=== PATIENT | female | born 1975 | race African-American/Black ===

== ENCOUNTER 2017-01-06 23:31 | Emergency (ER) | payer OTHER ==
[2017-01-07] MEDS ORDERED: Sulfamethox/Trimethoprim DS 800/160* TAB PO ONE (03:46)
[2017-01-07] MEDS ORDERED: Hydrocortisone 1% CREAM* 30 GM TUBE TOPICAL ONE (03:46)
--- NOTE | 2017-01-07 05:40 | ED ---
Tiburcio Lima Matthew, scribed for Pierce López on 01/07/17 at 0451 . Skin Complaint - HPI Summary HPI Summary: A 41 y/o female presents to the ED with a rash since a week ago. The pain is rated 9/10 in severity and described as burning. She states that the rash developed after waxing her face a week ago. Associated symptoms include headache. The patient denies chest pain and SOB. The patient had an ID last year. She is on blood thinners. - History of Current Complaint Chief Complaint: EDRashSkinAbscess Time Seen by Provider: 01/07/17 03:29 Stated Complaint: RASH ON FACE Hx Obtained From: Patient Hx Last Menstrual Period: 03/06/16 Onset/Duration: Started Days Ago, Atraumatic, Still Present Timing: Constant Onset Severity: Moderate Current Severity: Moderate Pain Intensity: 9 Pain Scale Used: 0-10 Numeric Skin Location: Face Character: Swelling, Painful Associated Signs & Symptoms: Negative - Additional Pertinent History Primary Care Physician: SCAR - Allergy/Home Medications Allergies/Adverse Reactions: Allergies Allergy/AdvReac Type Severity Reaction Status Date / Time No Known Allergies Allergy Verified 08/20/16 14:54 PMH/Surg Hx/FS Hx/Imm Hx Endocrine/Hematology History: Reports: Hx Anticoagulant Therapy, Hx Diabetes - type II Cardiovascular History: Reports: Hx Coronary Artery Disease, Hx Hypertension, Other Cardiovascular Problems/Disorders - IDDM II/OBESITY, HX OF PE Denies: Hx Congestive Heart Failure Respiratory History: Reports: Hx Asthma, Hx Pulmonary Embolism Denies: Hx Chronic Obstructive Pulmonary Disease (COPD) GI History: Reports: Hx Gastroesophageal Reflux Disease, Hx Hiatal Hernia History: Denies: Hx Dialysis, Hx Renal Disease Musculoskeletal History: Reports: Hx Back Problems - pain clinic, Hx Fibromyalgia Sensory History: Reports: Hx Contacts or Glasses Opthamlomology History: Reports: Hx Contacts or Glasses Psychiatric History: Reports: Hx Anxiety - Cancer History Hx Chemotherapy: No Hx Radiation Therapy: No - Surgical History Surgery Procedure, Year, and Place: knee arthroscopy, tonsillectomy Infectious Disease History: No Infectious Disease History: Denies: Traveled Outside the [place] in Last 30 Days - Family History Known Family History: Positive: Cardiac Disease, Other - NONCONTIBUTORY - Social History Alcohol Use: None Substance Use Type: Reports: Prescribed Hx Tobacco Use: No Smoking Status (MU): Never Smoked Tobacco Have You Smoked in the Last Year: No Review of Systems Constitutional: Negative Positive: Photophobia ENT: Negative Cardiovascular: Negative Negative: Chest Pain Respiratory: Negative Negative: Shortness Of Breath Gastrointestinal: Negative Genitourinary: Negative Musculoskeletal: Negative Skin: Other - Swelling around the chin and face Positive: Rash - under the chin Positive: Headache Psychological: Normal All Other Systems Reviewed And Are Negative: Yes Physical Exam Triage Information Reviewed: Yes Vital Signs On Initial Exam: Initial Vitals Temp Pulse Resp BP Pulse Ox 98.3 F 100 20 146/79 98 01/07/17 00:29 01/07/17 00:29 01/07/17 00:29 01/07/17 00:29 01/07/17 00:29 Vital Signs Reviewed: Yes Appearance: Positive: Well-Appearing, No Pain Distress Skin: Positive: Other - mild swelling over the chin and face with white discoloration Eyes: Positive: EOMI, RANJANA ENT: Positive: Normal ENT inspection Neck: Positive: Supple, Nontender Respiratory/Lung Sounds: Positive: Clear to Auscultation, Breath Sounds Present Cardiovascular: Positive: RRR, Pulses are Symmetrical in both Upper and Lower Extremities Abdomen Description: Positive: Nontender, Soft Bowel Sounds: Positive: Present Musculoskeletal: Positive: Normal, Strength/ROM Intact Neurological: Positive: Normal, Sensory/Motor Intact, Alert, Oriented to Person Place, Time Psychiatric: Positive: Affect/Mood Appropriate Diagnostics - Vital Signs Vital Signs Temp Pulse Resp BP Pulse Ox 01/07/17 03:16 95 152/93 99 01/07/17 00:29 98.3 F 100 20 146/79 98 - Laboratory Lab Statement: Any lab studies that have been ordered have been reviewed, and results considered in the medical decision making process. Course/Dx - Course Assessment/Plan: A 41 y/o female presents to the ED with a rash since a week ago. The pain is rated 9/10 in severity and described as burning. She states that the rash developed after waxing her face a week ago. Associated symptoms include headache. The patient denies chest pain and SOB. The patient will be discharged home on Bactrim and follow-up with her PCP. - Diagnoses Provider Diagnoses: Folliculitis Discharge - Discharge Plan Condition: Stable Disposition: HOME Prescriptions: Hydrocortisone 0.5% OINT* 1 applic TOPICAL BID #2 tube Sulfamethox/Trimethoprim DS* [Bactrim DS 800/160 TAB*] 1 tab PO BID #20 tab Patient Education Materials: Folliculitis (ED) Referrals: Tl Carlin MD [Primary Care Provider] - 3 Days Additional Instructions: Please follow-up with your primary care physician in 3 days. The documentation as recorded by the Tiburcio fitzgerald Matthew accurately reflects the service I personally performed and the decisions made by , Pierce López.
[2017-01-07 05:47] VITALS: BP 132/72
== END 2017-01-07 04:25 | disposition home or self-care (01) ==
LOC: ED 23:31
DX: L73.9 Follicular disorder, unspecified (principal); H53.149 Visual discomfort, unspecified; R21 Rash and other nonspecific skin eruption; R51 Headache
CPT/HCPCS: 99282; A9270-GY

== ENCOUNTER 2017-05-17 17:13 | Inpatient (IN) | payer OTHER ==
[2017-05-17] MEDS ORDERED: Morphine INJ* 4 MG/ML 1 ML SYRINGE IV ONE (18:46)
--- NOTE | 2017-05-17 19:27 | RAD ---
HISTORY: Chest pain COMPARISONS: August 20, 2016 VIEWS:1: Single frontal portable view of the chest at 7:07 PM FINDINGS: LINES AND TUBES: None. CARDIOMEDIASTINAL SILHOUETTE: The cardiomediastinal silhouette is normal for portable technique. PLEURA: The costophrenic angles are sharp. No pleural abnormalities are noted. LUNG PARENCHYMA: The lungs are clear. ABDOMEN: There is a moderate-sized hiatal hernia BONES AND SOFT TISSUES: No bone or soft tissue abnormalities are noted. IMPRESSION: HIATAL HERNIA. NO ACTIVE CARDIOPULMONARY DISEASE.
[2017-05-17 19:42] LABS: Hematocrit 39 % (35-47); Hemoglobin 13.2 g/dl (12.0-16.0); Mean Corpuscular HGB Conc 34 g/dl (31-36); Mean Corpuscular Hemoglobin 30 pg (27-31); Mean Corpuscular Volume 89 fL (80-97); Mean Platelet Volume 8 um3 (7.4-10.4); Red Blood Count 4.44 10^6/ul (4.0-5.4); Red Cell Distribution Width 16 % (10.5-15); White Blood Count 7.6 10^3/ul (3.5-10.8)
[2017-05-17 19:58] LABS: Albumin 3.8 g/dL (3.2-5.2); BUN/Creatinine Ratio 20.8 (8-20); Calcium 9.2 mg/dL (8.6-10.3); EGFR African American 113.2 (>60); Globulin 3.1 g/dL (2-4); Potassium 3.3 mmol/L (3.5-5.0); Total Bilirubin 0.3 mg/dL (0.2-1.0); Total Protein 6.9 g/dL (6.4-8.9)
--- NOTE | 2017-05-17 20:49 | ED ---
Beverly Lima Auryana, scribed for Arianne Hicks MD on 05/17/17 at 1803 . HPI Chest Pain - HPI Summary HPI Summary: 42 year old female presents with chest pain worse since today. She reports that it is intermittent chest pain that's an 8/10. Patient reports that over the last few weeks the pain has progressively gotten worse and recently had cardiac medications increased. Patient was seen at her PCP office and referred to ED for further evaluation. She reports a near syncopal episode while on her way to be seen at the ED- she also had neck pain, jaw pain, diaphoresis, increased fatigue, and SOB at 15:40. She reports similar symptoms with previous WA. 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 SHx is not significant for tobacco, alcohol,m or any drug use. PCP is Dr. Carlin. - History of Current Complaint Chief Complaint: EDChestPainROMI Time Seen by Provider: 05/17/17 17:54 Hx Obtained From: Patient Onset/Duration: Started Weeks Ago - 1, Still Present, Worse Since - today Time of Onset: 17:00 Timing: Intermittent Initial Severity: Mild Current Severity: Moderate Pain Intensity: 5 - reports 8/10 on arrival Pain Scale Used: 0-10 Numeric Chest Pain Location: Diffuse Chest Pain Radiates: No Associated Signs and Symptoms: Positive: Chest Pain, Shortness of Breath, Syncope, Diaphoresis, Other: - fatigue, neck pain, jaw pain Related History: Similar Episode/Dx as: - see HPI - Additional Pertinent History Primary Care Physician: [id number] - Allergy/Home Medications Allergies/Adverse Reactions: Allergies Allergy/AdvReac Type Severity Reaction Status Date / Time No Known Allergies Allergy Verified 05/17/17 17:21 Home Medications: Home Medications Diltiazem HCl Coated Beads [Cartia Xt] 240 mg PO DAILY 05/17/17 [History Confirmed 05/17/17] Fluticasone NASAL SPRAY 50MCG* [Flonase NASAL SPRAY 50MCG*] 2 spray BOTH NARES DAILY PRN 05/17/17 [History Confirmed 05/17/17] Hydrochlorothiazide TAB* [Hydrodiuril TAB*] 12.5 mg PO DAILY 05/17/17 [History Confirmed 05/17/17] Insulin Glargine [Basaglar Kwikpen] 75 unit SUBCUT QPM 05/17/17 [History Confirmed 05/17/17] Isosorbide Mononitrate ER TAB* [Imdur ER TAB*] 60 mg PO DAILY 05/17/17 [History Confirmed 05/17/17] Warfarin TAB(*) [Coumadin TAB(*)] 10 mg PO .TWICE WEEKLY 05/17/17 [History Confirmed 05/17/17] glipiZIDE TAB* [Glucotrol TAB*] 5 mg PO DAILY 05/17/17 [History Confirmed ] PMH/Surg Hx/FS Hx/Imm Hx Endocrine/Hematology History: Reports: Hx Anticoagulant Therapy, Hx Diabetes - type II Cardiovascular History: Reports: Hx Coronary Artery Disease, Hx Hypertension, Other Cardiovascular Problems/Disorders - IDDM II/OBESITY, HX OF PE Denies: Hx Congestive Heart Failure Respiratory History: Reports: Hx Asthma, Hx Pulmonary Embolism Denies: Hx Chronic Obstructive Pulmonary Disease (COPD) GI History: Reports: Hx Gastroesophageal Reflux Disease, Hx Hiatal Hernia History: Denies: Hx Dialysis, Hx Renal Disease Musculoskeletal History: Reports: Hx Back Problems - pain clinic, Hx Fibromyalgia Sensory History: Reports: Hx Contacts or Glasses Opthamlomology History: Reports: Hx Contacts or Glasses Psychiatric History: Reports: Hx Anxiety - Cancer History Hx Chemotherapy: No Hx Radiation Therapy: No - Surgical History Surgery Procedure, Year, and Place: knee arthroscopy, tonsillectomy Infectious Disease History: No Infectious Disease History: Denies: Traveled Outside the [place] in Last 30 Days - Family History Known Family History: Positive: Cardiac Disease - Social History Alcohol Use: None Hx Substance Use: Yes Substance Use Type: Reports: Prescribed Hx Tobacco Use: No Smoking Status (MU): Never Smoked Tobacco Have You Smoked in the Last Year: No Review of Systems Positive: Skin Diaphoresis, Other - increased fatigue Eyes: Negative ENT: Negative Positive: Chest Pain Positive: Shortness Of Breath Gastrointestinal: Negative Genitourinary: Negative Positive: Other - NECK AND JAW PAIN Skin: Negative Neurological: Negative Psychological: Normal All Other Systems Reviewed And Are Negative: Yes Physical Exam - Summary Physical Exam Summary: General: Well appearing, no pain distress Skin: Warm, Skin Color Reflects Adequate Perfusion, Dry Eyes: EOMI, RANJANA ENT: Pharynx normal, TMs normal Neck: Supple, nontender Respiratory: CTA, breath sounds present, no rhonchi, no wheezes, no rales Cardiovascular: RRR, no murmur, no rub, no gallop Abdomen: Soft, nontender, Non-distended, no guarding, no rebound Bowel: Present Musculoskeletal: SHARMAINE, No edema Neuro: Sensory/motor intact, A&Ox3, CN intact 2-12 Psych: Affect/mood appropriate Triage Information Reviewed: Yes Vital Signs On Initial Exam: Initial Vitals Temp Pulse Resp BP Pulse Ox 97.9 F 79 20 148/85 97 05/17/17 17:16 05/17/17 17:16 05/17/17 17:16 05/17/17 17:16 05/17/17 17:16 Vital Signs Reviewed: Yes - Erickson Coma Scale Coma Scale Total: 15 Diagnostics - Vital Signs Vital Signs Temp Pulse Resp BP Pulse Ox 05/17/17 17:18 97.9 F 78 20 148/85 96 05/17/17 17:16 97.9 F 79 20 148/85 97 - Laboratory Lab Results: Lab Results 05/17/17 05/17/17 05/17/17 Range/Units 19:20 19:20 19:20 WBC 7.6 (3.5-10.8) 10^3/ul RBC 4.44 (4.0-5.4) 10^6/ul Hgb 13.2 (12.0-16.0) g/dl Hct 39 (35-47) % MCV 89 (80-97) fL MCH 30 (27-31) pg MCHC 34 (31-36) g/dl RDW 16 H (10.5-15) % Plt Count 316 (150-450) 10^3/ul MPV 8 (7.4-10.4) um3 Neut % (Auto) 49.7 (38-83) % Lymph % (Auto) 40.9 (25-47) % [place] % (Auto) 7.2 (1-9) % Eos % (Auto) 1.6 (0-6) % Baso % (Auto) 0.6 (0-2) % Absolute Neuts (auto) 3.8 (1.5-7.7) 10^3/ul Absolute Lymphs (auto) 3.1 (1.0-4.8) 10^3/ul Absolute Monos (auto) 0.5 (0-0.8) 10^3/ul Absolute Eos (auto) 0.1 (0-0.6) 10^3/ul Absolute Basos (auto) 0 (0-0.2) 10^3/ul Absolute Nucleated RBC 0 10^3/ul Nucleated RBC % 0.1 Sodium 138 (133-145) mmol/L Potassium 3.3 L (3.5-5.0) mmol/L Chloride 106 (101-111) mmol/L Carbon Dioxide 24 (22-32) mmol/L Anion Gap 8 (2-11) mmol/L BUN 15 (6-24) mg/dL Creatinine 0.72 (0.51-0.95) mg/dL Est GFR ( Amer) 113.2 (>60) Est GFR (Non-Af Amer) 88.0 (>60) BUN/Creatinine Ratio 20.8 H (8-20) Glucose 145 H (70-100) mg/dL Lactic Acid 1.3 (0.5-2.0) mmol/L Calcium 9.2 (8.6-10.3) mg/dL Total Bilirubin 0.30 (0.2-1.0) mg/dL AST 10 L (13-39) U/L ALT 11 (7-52) U/L Alkaline Phosphatase 83 (34-104) U/L Troponin I 0.00 (<0.04) ng/mL Total Protein 6.9 (6.4-8.9) g/dL Albumin 3.8 (3.2-5.2) g/dL Globulin 3.1 (2-4) g/dL Albumin/Globulin Ratio 1.2 (1-3) Result Diagrams: 05/17/17 19:20 05/17/17 19:20 Lab Statement: Any lab studies that have been ordered have been reviewed, and results considered in the medical decision making process. - Radiology CXR Xray Interpretation: Positive (See Comments) - IMPRESSION: HIATAL HERNIA. NO ACTIVE CARDIOPULMONARY DISEASE. Radiology Interpretation Completed By: Radiologist - EKG 17:25 EKG Interpretation: NSR @76 bpm, FLAT NON-SPECIFIC T WAVES CHANGES EKG Comparison: No Significant Change - FROM 08/22/16 Chest Pain Course/Dx - Diagnoses Provider Diagnoses: Chest pain Discharge - Discharge Plan Condition: Stable Disposition: ADMITTED TO [facility] The documentation as recorded by the Beverly fitzgerald Auryana accurately reflects the service I personally performed and the decisions made by me, Arianne Hicks MD.
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
[2017-05-17] MEDS ORDERED: Acetaminophen TAB* 325 MG PO PRN (21:31)
[2017-05-17] MEDS ORDERED: Morphine INJ* 2 MG/ML 1 ML SYRINGE IV PRN (21:34)
[2017-05-17] MEDS ORDERED: CMCS: Melatonin (NF) 3 MG TAB PO PRN (21:34)
[2017-05-17] MEDS ORDERED: Ondansetron INJ* 2 MG/ML VIAL IV PRN (21:34)
[2017-05-17] MEDS ORDERED: Nitroglycerin 2% OINT* 1 GM PAK ONE (22:26)
[2017-05-17] MEDS: Nitroglycerin 2% OINT* 1 GM PAK TOPICAL SCH (22:30)
[2017-05-17] MEDS: traMADol TAB* 50 MG PO PRN (22:31)
[2017-05-17] MEDS ORDERED: Cetirizine* 10 MG TAB PO PRN (23:01)
[2017-05-17] MEDS ORDERED: Albuterol 2.5 MG/3 ML NEB.SOL* (0.083%) INH PRN (23:01)
[2017-05-17] MEDS ORDERED: Potassium Chlor TAB* 20 MEQ TAB.ER PO ONE (23:30)
[2017-05-17] MEDS: NS 0.9% 1000 ML* 1,000 ML IV SCH (23:33)
[2017-05-17] MEDS ORDERED: Heparin VIAL(*) 5000 UNITS/ML VIAL (FIVE THOUSAND) SUBCUT PRN (23:37)
[2017-05-18] MEDS: Heparin DRIP 25,000 UNITS(*) 25,000 UNITS/500 ML BAG IVPB SCH ×3 (00:47→19:42)
[2017-05-18 00:49] LABS: BUN/Creatinine Ratio 19.7 (8-20); Calcium 8.7 mg/dL (8.6-10.3); EGFR African American 106.3 (>60); EGFR Non-African American 82.7 (>60); Potassium 3.3 mmol/L (3.5-5.0)
[2017-05-18] MEDS: Heparin VIAL(*) 5000 UNITS/ML VIAL (FIVE THOUSAND) IV PRN ×2 (00:51→19:39)
[2017-05-18 00:54] LABS: Troponin I 0.05 ng/mL (<0.04)
[2017-05-18] MEDS: Nitro Patch/OINT Remove PATCH OFF SCH ×5 (04:30→22:44)
[2017-05-18] MEDS: Nitroglycerin 2% OINT* 1 GM PAK TOPICAL SCH ×4 (04:31→22:44)
[2017-05-18] MEDS: traMADol TAB* 50 MG PO PRN (04:52)
[2017-05-18] MEDS ORDERED: Heparin VIAL(*) 5000 UNITS/ML VIAL (FIVE THOUSAND) SUBCUT SCH (06:00)
[2017-05-18] MEDS ORDERED: Omeprazole CAP* 20 MG PO SCH (06:00)
[2017-05-18] MEDS: Mometasone/Formoter 200/5 MDI INH SCH ×2 (07:37→19:44)
[2017-05-18] MEDS: Insulin LISPRO* 1 UNITS UNIT SUBCUT SCH ×7 (08:07→22:31)
[2017-05-18] MEDS ORDERED: Regadenoson* 0.4 MG/5 ML SYRINGE ONE (12:53)
[2017-05-18] MEDS: Citalopram TAB* 40 MG PO SCH (14:36)
[2017-05-18] MEDS: Aspirin Low Dose CHEW TAB* 81 MG PO SCH (14:36)
[2017-05-18] MEDS: Docusate CAP* 100 MG PO SCH ×2 (14:37→22:42)
[2017-05-18] MEDS: Omeprazole CAP* 20 MG PO SCH (14:37)
[2017-05-18] MEDS: Diltiazem CD CAP* 240 MG PO SCH (14:40)
[2017-05-18] MEDS: Hydrochlorothiazide TAB* 25 MG PO SCH (14:41)
[2017-05-18] MEDS: glipiZIDE TAB* 5 MG PO SCH (14:42)
[2017-05-18] MEDS: oxyCODONE/Acetamin 5/325 MG* TAB PO PRN ×2 (14:42→23:06)
[2017-05-18] MEDS: Metoprolol Tartrate TAB* 25 MG PO SCH ×2 (14:48→22:43)
--- NOTE | 2017-05-18 16:54 | PN ---
Subjective Date of Service: 05/18/17 Interval History: HOSPITALIST PROGRESS NOTE Patient seen and examined at bedside. She feels a little better this AM, but very anxious about her condition. Denies dyspnea or palpitations. Family History: Unchanged from Admission Social History: Unchanged from Admission Past Medical History: Unchanged from Admission Objective Active Medications: Acetaminophen (Tylenol Tab*) 650 mg PO Q6H PRN PRN Reason: FEVER/PAIN Albuterol (Ventolin 2.5 Mg/3 Ml Neb.Gwen*) 2.5 mg INH Q2H PRN PRN Reason: SOB/WHEEZING Aspirin (Aspirin Low Dose Tab*) 81 mg PO DAILY [facility] Last Admin: 05/18/17 14:36 Dose: 81 mg Atorvastatin Calcium (Lipitor*) 40 mg PO BEDTIME [facility] Cetirizine HCl (Zyrtec*) 10 mg PO DAILY PRN PRN Reason: Allergy Symptoms Citalopram Hydrobromide (Celexa Tab*) 40 mg PO DAILY [facility] Last Admin: 05/18/17 14:36 Dose: 40 mg Diltiazem HCl (Cardizem Cd Cap*) 240 mg PO DAILY [facility] Last Admin: 05/18/17 14:40 Dose: 240 mg Docusate Sodium (Colace Cap*) 200 mg PO BID [facility] Last Admin: 05/18/17 14:37 Dose: 200 mg Glipizide (Glucotrol Tab*) 5 mg PO DAILY [facility] Last Admin: 05/18/17 14:42 Dose: 5 mg Heparin Sodium (Porcine) (Heparin Vial(*)) 0 units IV .PER PROTOCOL PRN PRN Reason: HEPARIN DRIP BOLUSES Last Admin: 05/18/17 00:51 Dose: 6,450 units Hydrochlorothiazide (Hydrodiuril Tab*) 12.5 mg PO DAILY [facility] Last Admin: 05/18/17 14:41 Dose: 12.5 mg Sodium Chloride (Ns 0.9% 1000 Ml*) 1,000 mls @ 75 mls/hr IV PER RATE [facility] Last Admin: 05/17/17 23:33 Dose: 75 mls/hr Heparin Sodium/Dextrose (Heparin Drip 25,000 Units(*)) 25,000 units in 500 mls @ 0 mls/hr IVPB .(INITIAL RATE) [facility]; Per Protocol PRN Reason: Protocol Last Admin: 05/18/17 00:47 Dose: 28 mls/hr Insulin Glargine (Lantus(*)) 75 units SUBCUT 2100 [facility] Insulin Human Lispro (Humalog*) 0 units SUBCUT AC [facility] PRN Reason: Protocol Last Admin: 05/18/17 15:32 Dose: 3 units Insulin Human Lispro (Humalog*) 0 units SUBCUT ACHS [facility] PRN Reason: Protocol Last Admin: 05/18/17 14:27 Dose: 3 units Melatonin (Melatonin (Nf)) 3 mg PO BEDTIME PRN; Protocol PRN Reason: Sleep Metoprolol Tartrate (Lopressor Tab*) 25 mg PO ED ONCE ONE Stop: 05/18/17 22:57 Metoprolol Tartrate (Lopressor Tab*) 37.5 mg PO BID [facility] Last Admin: 05/18/17 14:48 Dose: 37.5 mg Mometasone Furoate/Formoterol Fumar (Dulera 200/5 Mdi*) 1 puff INH BID [facility] Last Admin: 05/18/17 07:37 Dose: 1 puff Morphine Sulfate (Morphine Inj (Syringe)*) 2 mg IV Q4H PRN PRN Reason: PAIN - MILD Nitroglycerin (Nitroglycerin 2% Oint*) 1 inch TOPICAL Q6H [facility] Last Admin: 05/18/17 10:10 Dose: Not Given Omeprazole (Prilosec Cap*) 40 mg PO QAM [facility] Last Admin: 05/18/17 14:37 Dose: 40 mg Ondansetron HCl (Zofran Inj*) 4 mg IV Q6H PRN PRN Reason: NAUSEA Last Admin: 05/17/17 22:31 Dose: 4 mg Oxycodone/Acetaminophen (Percocet 5/325 Tab*) 1 tab PO Q8HR PRN PRN Reason: PAIN Last Admin: 05/18/17 14:42 Dose: 1 tab Pharmacy Profile Note (Nitro Patch/Oint Remove*) 1 note PATCH OFF Q6H [facility] Last Admin: 05/18/17 10:10 Dose: Not Given Tramadol HCl (Ultram*) 50 mg PO Q6H PRN PRN Reason: PAIN Last Admin: 05/18/17 04:52 Dose: 50 mg Vital Signs 05/18/17 05/18/17 05/18/17 07:20 07:30 07:32 Temperature 97.4 F Pulse Rate 80 Respiratory 15 10 20 Rate Blood Pressure 117/69 (mmHg) O2 Sat by Pulse 97 Oximetry 05/18/17 05/18/17 05/18/17 14:10 14:20 14:30 Temperature 97.6 F Pulse Rate 75 Respiratory 16 18 11 Rate Blood Pressure 141/61 (mmHg) O2 Sat by Pulse 98 Oximetry Oxygen Devices in Use Now: None Appearance: Obese lady lying in bed in NAD. Eyes: No Scleral Icterus Ears/Nose/Mouth/Throat: Mucous Membranes Moist Neck: Trachea Midline Respiratory: Symmetrical Chest Expansion and Respiratory Effort, Clear to Auscultation Cardiovascular: RRR - Normal S1 and S2 Abdominal: NL Sounds; No Tenderness; No Distention Neurological: Alert and Oriented x 3, NL Muscle Strength and Tone Lines/Tubes/Other Access: Clean, Dry and Intact Peripheral IV Nutrition: Taking PO's Result Diagrams: 05/17/17 19:20 05/18/17 00:25 Assess/Plan/Problems-Billing Assessment: Mrs. 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 - Patient Problems (1) Chest pain Comment: - Troponin minimally elevated at 0.05 despite persistent chest pain. - Causing patient significant anxiety as she previously had CP for weeks prior to developing inferior STEMI. - Plan for Myoview lexiscan. - INR is subtherapeutic and her last coronary event was secondary to a thrombus - continue heparin for now, but if stress test negative, will change to Lovenox/ Warfarin. - Continue Aspirin, Metoprolol, Atorvastatin, Nitrates. (2) History of pulmonary embolism Comment: - INR subtherapeutic. - Continue heparin drip. If stress test negative and no indication for cath, will bridge with Lovenox and resume Warfarin. (3) Diabetes mellitus Comment: - Last A1c 6.9. - Continue Lantus, glipizide, and lispro SS. (4) Asthma Comment: - Stable. - Continue albuterol prn and dulera. (5) Hypertension Comment: - Controlled. - Continue metoprolol, diltiazem, and HCTZ (6) DVT prophylaxis Comment: - Heparin drip. (7) Full code status Status and Disposition: Inpatient.
--- NOTE | 2017-05-18 17:05 | CONSULT ---
Subjective Date of Service: 05/18/17 Interval History: Admission Date: 05/17/17 Date of consult: 05/18/2017 Service: Hospitalist PCP : Caitlin Carlin MD CC : chest pain Reason for consult: Chest pain HPI : Myranda Menjivar is a 42 year old woman well known to me that I follow as an outpatient. She has a history of PE, anemia, IWMI 09/2015 s/p aspiration thrombectomy of RPL/PDA branches felt to be due to hypercoagulable state (? vs. vasospasm) following an angiogram with non-obstructive CAD a month prior to this , LVEF normal, obesity, DM, HTN, dyslipidemia, asthma, also hx of right radial/ arm thrombus following radial angiogram, CT scan showing wedge infarcts of left renal parenchyma. [place] to have hypercoagulable state. Also has hiatal hernia, PTSD, fibromyalgia and a history of very frequent and prolonged non-cardiac chest pain as well. She lives near [place] but drives to [place] for medical care. She was at [facility] with atypical CP, ruled out for ACS, normal stress echo and discharged. Was there again 04/28/2017 with atypical chest pain, ruled out and discharged. She has been under a lot of family stress and cried for at least 40 minutes in the office today. We increased her imdur some and this helped a little bit with discomfort but continued. She saw Dr. Carlin yesterday (had also been to counseling for the first time) . She had to kidney puller the side of the rode to sleep she tells me because she was so exhausted. She felt lightheaded but no outright syncope. She continues to have varying degrees of chest discomfort throughout hospitalization. EKG's have shown NSR with old IWMI and no ischemic changes. There was one spuriously elevated troponin of 0.05 otherwise have been normal. D-dimer < 200. INR was 1.24 PMedHx ME with thrombectomy 09/2015 cardiac cath complicated by radial artery occlusion 08/2015 pulmonary embolism 04/2015 insulin requiring DM2 iron deficiency anemia asthma hiatal hernia chronic pain syndrome fibromyalgia depression PTSD anxiety disorder mood disorder Allergies No Known Allergies Allergy (Verified 05/17/17 17:21) SocHx : no tobacco, alcohol, or recreational drug use; lives alone, has fiance; full code status FamHx : Sister passed of a pulmonary embolism at age 21. Otherwise, positive for CAD, HTN, HLD, DM2 Current meds prior to visit: Glipizide 5 mg take 1 tablet after breakdaily Metformin HCL 500 mg 1 by mouth twice a day Basaglar Kwikpen 100 Unit/ML 75 units at bedtime Warfarin Sodium 4 mg 1 by mouth every other night or as directed Diflucan 150 mg 1 tab 1 dose as needed Gabapentin 100 mg 2 cap three times a day Colace 100 mg 2 cap at bedtime Milk Of Magnesia 1200 mg/15ml 15 milliliters at bedtime blanka Omeprazole 20 mg 1 by mouth twice daily Warfarin Sodium 5 mg now taking 10mg t2tab alternating 3tab Nitrostat 0.4 mg one sl q5min up to 3 doses as needed Atorvastatin Calcium 40 mg 1 by mouth every day Voltaren 1 % apply 2 grams of gel twice daily to the affected areas as needed Montelukast Sodium 10 mg once daily Alcohol Wipes 70 % use when checking blood sugar 2-3 times daily and as needed Lancets use 2-3 times daily and as needed Freestyle Test test strips 2-3 times daily and as needed Cetirizine HCL 10 mg 1 by mouth every day Citalopram Hydrobromide 40 mg 1 by mouth every day Aspirin Ec 81 mg 1 by mouth every day Sumatriptan Succinate 100 mg use at onset of head ache,may repeat after 2h as needed Freestyle Insulinx Blood Glucose Monitoring System W/Device as directed. dx code 250.02 Freestyle Insulinx Blood Glucose Test Strips check blood sugar 2-3 times daily Pen [place] 03/13" 30G X 8 mm four times a day every day for lantus and humalog Zolpidem Tartrate 10 mg 1/2 to 1 tab by mouth every night at bedtime as needed Lisinopril-Hydrochlorothiazide 10-12.5 mg once daily in in the morning Ondansetron 4 mg 1 two times a day as needed for nausea Ventolin HFA 108 (90 Base) mcg/Act 2 puffs by mouth four times a day as needed Humalog Kwikpen 100 Unit/ML check before meals &prn [id number] 2u,201-250 4 u, 251-300 5 u, 301-350 6 u 351-400 8 units; >400 call md, mdd 100 units Percocet 5-325 mg 1tab every 8 hours as needed pain Dulera 200-5 mcg/Act 2 puff twice a day Isosorbide Mononitrate ER 30 mg 1 by mouth every day Diltiazem CD 120 mg 1 cap daily medication list reviewed on 05/04/2017 Allergies: No Known Drug Allergy 05/11/15 Dust Mites 10/10/16 Mold 10/10/16 Pollen 10/10/16 allergy list reviewed on 05/04/2017 PMH: Medical Problems: Hypertension Diabetes Type II Asthma Fibromyalgia Pulmonary Embolism GERD Surgical Hx: Tonsillectomy Hospitalizations: April 2015 [facility], May 2015 for respiratory / Pe Medications Active Medications: Acetaminophen (Tylenol Tab*) 650 mg PO Q6H PRN PRN Reason: FEVER/PAIN Albuterol (Ventolin 2.5 Mg/3 Ml Neb.Gwen*) 2.5 mg INH Q2H PRN PRN Reason: SOB/WHEEZING Aspirin (Aspirin Low Dose Tab*) 81 mg PO DAILY [facility] Last Admin: 05/18/17 14:36 Dose: 81 mg Atorvastatin Calcium (Lipitor*) 40 mg PO BEDTIME [facility] Cetirizine HCl (Zyrtec*) 10 mg PO DAILY PRN PRN Reason: Allergy Symptoms Citalopram Hydrobromide (Celexa Tab*) 40 mg PO DAILY [facility] Last Admin: 05/18/17 14:36 Dose: 40 mg Diltiazem HCl (Cardizem Cd Cap*) 240 mg PO DAILY [facility] Last Admin: 05/18/17 14:40 Dose: 240 mg Docusate Sodium (Colace Cap*) 200 mg PO BID [facility] Last Admin: 05/18/17 14:37 Dose: 200 mg Glipizide (Glucotrol Tab*) 5 mg PO DAILY [facility] Last Admin: 05/18/17 14:42 Dose: 5 mg Heparin Sodium (Porcine) (Heparin Vial(*)) 0 units IV .PER PROTOCOL PRN PRN Reason: HEPARIN DRIP BOLUSES Last Admin: 05/18/17 00:51 Dose: 6,450 units Hydrochlorothiazide (Hydrodiuril Tab*) 12.5 mg PO DAILY [facility] Last Admin: 05/18/17 14:41 Dose: 12.5 mg Sodium Chloride (Ns 0.9% 1000 Ml*) 1,000 mls @ 75 mls/hr IV PER RATE [facility] Last Admin: 05/17/17 23:33 Dose: 75 mls/hr Heparin Sodium/Dextrose (Heparin Drip 25,000 Units(*)) 25,000 units in 500 mls @ 0 mls/hr IVPB .(INITIAL RATE) [facility]; Per Protocol PRN Reason: Protocol Last Admin: 05/18/17 00:47 Dose: 28 mls/hr Insulin Glargine (Lantus(*)) 75 units SUBCUT 2100 [facility] Insulin Human Lispro (Humalog*) 0 units SUBCUT AC [facility] PRN Reason: Protocol Last Admin: 05/18/17 15:32 Dose: 3 units Insulin Human Lispro (Humalog*) 0 units SUBCUT ACHS [facility] PRN Reason: Protocol Last Admin: 05/18/17 14:27 Dose: 3 units Melatonin (Melatonin (Nf)) 3 mg PO BEDTIME PRN; Protocol PRN Reason: Sleep Metoprolol Tartrate (Lopressor Tab*) 25 mg PO ED ONCE ONE Stop: 05/18/17 22:57 Metoprolol Tartrate (Lopressor Tab*) 37.5 mg PO BID [facility] Last Admin: 05/18/17 14:48 Dose: 37.5 mg Mometasone Furoate/Formoterol Fumar (Dulera 200/5 Mdi*) 1 puff INH BID [facility] Last Admin: 05/18/17 07:37 Dose: 1 puff Morphine Sulfate (Morphine Inj (Syringe)*) 2 mg IV Q4H PRN PRN Reason: PAIN - MILD Nitroglycerin (Nitroglycerin 2% Oint*) 1 inch TOPICAL Q6H [facility] Last Admin: 05/18/17 10:10 Dose: Not Given Omeprazole (Prilosec Cap*) 40 mg PO QAM [facility] Last Admin: 05/18/17 14:37 Dose: 40 mg Ondansetron HCl (Zofran Inj*) 4 mg IV Q6H PRN PRN Reason: NAUSEA Last Admin: 05/17/17 22:31 Dose: 4 mg Oxycodone/Acetaminophen (Percocet 5/325 Tab*) 1 tab PO Q8HR PRN PRN Reason: PAIN Last Admin: 05/18/17 14:42 Dose: 1 tab Pharmacy Profile Note (Nitro Patch/Oint Remove*) 1 note PATCH OFF Q6H [facility] Last Admin: 05/18/17 10:10 Dose: Not Given Tramadol HCl (Ultram*) 50 mg PO Q6H PRN PRN Reason: PAIN Last Admin: 05/18/17 04:52 Dose: 50 mg Home Medications: Ondansetron TAB* [Zofran 4 MG Tab*] 4 mg PO BID PRN 05/13/15 [History Confirmed 05/17/17] Docusate CAP* [Colace Cap*] 100 mg PO BID 09/13/15 [History Confirmed 05/17/17] Insulin Lispro [Humalog Kwikpen] 0 - 8 unit SUBCUT AC PRN 09/13/15 [History Confirmed 05/17/17] LevoCETirizine TAB (NF) [Xyzal TAB (NF)] 5 mg PO DAILY PRN 09/13/15 [History Confirmed 05/17/17] Mometasone/Formoter 200/5 MDI* [Dulera 200/5 MDI*] 1 puff INH BID 09/13/15 [ History Confirmed 05/17/17] oxyCODONE/Acetamin 5/325 MG* [Percocet 5/325 TAB*] 1 tab PO Q8HR PRN 09/13/15 [ History Confirmed 05/17/17] Omeprazole CAP* [Prilosec CAP* 20 MG] 40 mg PO QAM 09/16/15 [History Confirmed 05/17/17] Zolpidem TAB* [Ambien*] 5 - 10 mg PO BEDTIME PRN 09/16/15 [History Confirmed ] Albuterol HFA INHALER* [Ventolin HFA Inhaler*] 2 puff INH QID PRN 09/21/15 [ History Confirmed 05/17/17] Atorvastatin* [Lipitor 40 MG*] 40 mg PO BEDTIME 09/21/15 [History Confirmed ] Aspirin Low Dose CHEW TAB* [Aspirin Low Dose TAB*] 81 mg PO DAILY #30 tab.chew 10/20/15 [Rx Confirmed 05/17/17] Citalopram TAB* [Celexa TAB*] 40 mg PO DAILY #30 tab 10/20/15 [Rx Confirmed ] Metoprolol Tartrate TAB* [Lopressor TAB*] 37.5 mg PO BID #60 tab 10/20/15 [Rx Confirmed 05/17/17] Warfarin TAB(*) [Coumadin TAB(*)] 15 mg PO EVERY OTHER DAY 03/20/16 [History Confirmed 05/17/17] Nitroglycerin TAB 0.4 MG* 0.4 mg SL Q5M PRN #30 tab 08/22/16 [Rx Confirmed 05/17] Hydrocortisone 0.5% OINT* 1 applic TOPICAL BID #2 tube 01/07/17 [Rx Confirmed ] Diltiazem HCl Coated Beads [Cartia Xt] 240 mg PO DAILY 05/17/17 [History Confirmed 05/17/17] Fluticasone NASAL SPRAY 50MCG* [Flonase NASAL SPRAY 50MCG*] 2 spray BOTH NARES DAILY PRN 05/17/17 [History Confirmed 05/17/17] Hydrochlorothiazide TAB* [Hydrodiuril TAB*] 12.5 mg PO DAILY 05/17/17 [History Confirmed 05/17/17] Insulin Glargine [Basaglar Kwikpen] 75 unit SUBCUT QPM 05/17/17 [History Confirmed 05/17/17] Isosorbide Mononitrate ER TAB* [Imdur ER TAB*] 60 mg PO DAILY 05/17/17 [History Confirmed 05/17/17] Warfarin TAB(*) [Coumadin TAB(*)] 10 mg PO .TWICE WEEKLY 05/17/17 [History Confirmed 05/17/17] glipiZIDE TAB* [Glucotrol TAB*] 5 mg PO DAILY 05/17/17 [History Confirmed ] Review of Systems - Measurements Intake and Output: Intake and Output Last 24 Hours 05/16/17 05/17/17 05/18/17 05/19/17 06:59 06:59 06:59 06:59 Intake Total 546 0 Output Total 0 Balance 546 0 Weight 285 lb 8 oz Intake: IV Fluids 206 NS (0.9%) 206 Heparin 165 Oral 175 0 Output: Urine 0 Other: # Bowel Movements 0 - Review of Systems Constitutional Symptoms: Negative: Weakness, Fatigue Dermatology: Negative: Rash, Skin Lesions HEENT: Negative: Change in Hearing, Vertigo, Tinnitus Eyes: Negative: Change in Vision, Double Vision, Eye Pain Thyroid: Positive: Sweatiness, Palpitations Negative: Cold Intolerance, Heat Intolerance, Primary Hypothyroidism, Primary Hyperthyroidism Pulmonary: Positive: Shortness of Breath, Asthma, Exercise Intolerance Negative: Cough, Sputum, Hemoptysis Cardiology: Positive: Chest Pain, Shortness of Breath, Palpitations Negative: Normal, Swelling of Ankles, Peripheral Vascular Dis, Edema, Syncope , Claudication, Paroxysmal Nocturnal Dyspnea, Orthopnea Gastroenterology: Positive: Heartburn Negative: Abdominal Pain, Nausea, Vomiting, Anorexia, Indigestion, Difficulty Swallowing, Constipation, Diarrhea Genital - Urinary: Negative: Dysuria, Hematuria Musculoskeletal: Negative: Joint Pain, Joint Stiffness, Arthritis, Osteoporosis, Low Back Pain Endocrinology: Positive: Obesity, Diabetes Negative: Calluses, Polydipsia, Polyuria Hematologic/Lymphatic: Positive: Use of Anticoagulant, Use of Antiplatelet Drugs Negative: Easy Brusing, Hx Leukemia, Hx Lymphoma Neurology: Negative: Headaches, Migraines, Diplopia, Dizziness, Change in Balancing, Change in Coordination, Change in Memory, Change in Speech, Change in Sphincter Function, Change in Walking, Numbness\\Paresthesiae, Hx of Stroke\\TIA, Hx Seizures Psychiatry: Positive: Anxiety, Unusual Fatigue Negative: Suicidal Ideation Allergic/Immunologic: Negative: Hx Environmental Allergies, Hx Seasonal Allergies, Hx HIV, Immunocompromise, Swollen Glands Lymph Nodes, Other Review of Systems Statement: All other review of systems negative, unless stated above. Objective Vital Signs: Temp Pulse Resp BP Pulse Ox 97.6 F 59 20 129/68 98 05/18/17 16:07 05/18/17 16:07 05/18/17 16:07 05/18/17 16:07 05/18/17 16:07 Oxygen Devices in Use Now: None Appearance: tearful at times but pleasant, not toxic appearing Ears/Nose/Mouth/Throat: Clear Oropharnyx, Mucous Membranes Moist Neck: NL Appearance and Movements; NL JVP, Trachea Midline Respiratory: Symmetrical Chest Expansion and Respiratory Effort, Clear to Auscultation Cardiovascular: NL Sounds; No Murmurs; No JVD, RRR, No Edema Abdominal: - - soft, obese Extremities: No Edema, No Clubbing, Cyanosis Skin: No Rash or Ulcers Neurological: Alert and Oriented x 3 Laboratory Results: 05/17/17 19:20 05/18/17 00:25 INR (Anticoag Therapy) 1.24 (0.89-1.11) H 05/17/17 19:20 APTT 76.4 seconds (26.0-36.3) H 05/18/17 09:36 Total Bilirubin 0.30 mg/dL (0.2-1.0) 05/17/17 19:20 AST 10 U/L (13-39) L 05/17/17 19:20 ALT 11 U/L (7-52) 05/17/17 19:20 Alkaline Phosphatase 83 U/L (34-104) 05/17/17 19:20 Total Protein 6.9 g/dL (6.4-8.9) 05/17/17 19:20 Albumin 3.8 g/dL (3.2-5.2) 05/17/17 19:20 Globulin 3.1 g/dL (2-4) 05/17/17 19:20 Albumin/Globulin Ratio 1.2 (1-3) 05/17/17 19:20 05/17/17 05/18/17 05/18/17 19:20 00:25 05:46 Troponin I 0.00 0.05 H* 0.00 Diagnostic Imaging: Cardiac Testing: Stress Test - (11/27/2016) Baseline LVEF reported normal with no WMA, no evidence of ischemia with dobutamine stress echo Echocardiogram - (10/15/2015) LVEF 55-60%, mild LVH, no significant valvular abnormalities noted. Holter Monitor - (07/02/2015) chest pain, fatigue, dyspnea or fast heart rate all associated with either normal sinus rhythm or sinus tachycardia. Stress Test - (06/23/2015) Normal vasodilator NM stress test EKG - (06/14/2015) Sinus rhythm, no ischemic changes. Echocardiogram - (04/2015) mild-mod LVH, LVEF 60-65%, mild dilated LA EKG - (05/03/2016) NSR, old inferior wall ME Assessment/Plan There is no evidence of a cardiac etiology of patients chest pain. A stress test had been ordered and is in process but her prior ME was vasospastic or thrombotic so it will be of little utility. Inferior wall changes consistent with her prior ME are expected. I would continue aggressive anti-anginals but also consider non-cardiac causes of her pain. I am unsure what to make of the episode while driving here. There was no outright syncope. It would appear to be unlikely arrhythmic or bradycardia related but I would continue telemetry monitoring while inpatient. INR needs to be therapeutic. She has a follow up with me scheduled 05/28/2017
[2017-05-18] MEDS ORDERED: Insulin GLARGINE(*) 1 UNITS UNIT SUBCUT SCH (21:00)
[2017-05-18] MEDS ORDERED: Atorvastatin* 40 MG TAB PO SCH (21:00)
[2017-05-18] MEDS ORDERED: Metoprolol Tartrate TAB* 25 MG PO ONE (22:56)
[2017-05-19] MEDS: NS 0.9% 1000 ML* 1,000 ML IV SCH (03:18)
[2017-05-19] MEDS: Nitroglycerin 2% OINT* 1 GM PAK TOPICAL SCH ×2 (04:06→11:43)
[2017-05-19] MEDS: Nitro Patch/OINT Remove PATCH OFF SCH ×2 (04:10→11:43)
[2017-05-19] MEDS: Heparin DRIP 25,000 UNITS(*) 25,000 UNITS/500 ML BAG IVPB SCH (05:16)
[2017-05-19] MEDS: Mometasone/Formoter 200/5 MDI INH SCH (08:23)
--- NOTE | 2017-05-19 09:25 | RAD ---
Edited for charges. INDICATION: Chest pain, STEMI September 2016. COMPARISON: There are no prior studies available for comparison. Technique: A stress myocardial perfusion study was performed on May 18, 2017. Under the direction of Dr. Ball, the patient was given intervenous injection of Lexiscan. Subsequently the patient was given intravenous injection of 26.3 mCi of technetium 99m tetrofosmin and the heart was imaged in multiple projections. A resting study was performed on May 19, 2017. The patient was given an intravenous injection of 25.3 mCi of technetium 99m tetrofosmin and the heart was imaged in multiple projections. The exam is limited due to the patient's body habitus. Images were reconstructed in the axial, sagittal and coronal planes as well as in a 3-D format. FINDINGS: There appears to be normal wall motion and myocardial thickening. The left ventricular ejection fraction was calculated to be 70%. Review of the images demonstrates a small area of decreased activity in the anteroseptal wall which appears similar on both the post pharmacologic stress and resting images suggestive of an infarct. No other focal abnormalities are seen. There is no gross evidence for ischemia. IMPRESSION: 1. LIMITED STUDY. 2. SMALL PERSISTENT AREA OF DECREASED ACTIVITY IN THE ANTEROSEPTAL WALL SUGGESTIVE OF A SMALL INFARCT. ASSESSMENT: Low risk. Based on imaging criteria from ACC/AHA 2002 Guideline Update for the Management of Patients With Chronic Stable Angina Table 23. Noninvasive Risk Stratification. MTDD
--- NOTE | 2017-05-19 09:27 | RAD ---
INDICATION: Left lower extremity swelling. COMPARISON: Comparison is made with a prior study from August 20, 2016. TECHNIQUE: Multiple real-time, color flow and Doppler tracings of the left lower extremity were obtained. FINDINGS: The common femoral, femoral, profunda femoral and popliteal veins all demonstrate normal compressibility, augmentation with compression and phasic response with respiration. The posterior tibial and peroneal veins demonstrate normal compressibility and augmentation with compression. IMPRESSION: NO EVIDENCE FOR DEEP VENOUS THROMBOSIS.
[2017-05-19] MEDS: Omeprazole CAP* 20 MG PO SCH (09:54)
[2017-05-19] MEDS: glipiZIDE TAB* 5 MG PO SCH (09:55)
[2017-05-19] MEDS: Hydrochlorothiazide TAB* 25 MG PO SCH (09:55)
[2017-05-19] MEDS: Diltiazem CD CAP* 240 MG PO SCH (09:56)
[2017-05-19] MEDS: Citalopram TAB* 40 MG PO SCH (09:57)
[2017-05-19] MEDS: Aspirin Low Dose CHEW TAB* 81 MG PO SCH (09:58)
[2017-05-19] MEDS: Docusate CAP* 100 MG PO SCH (09:58)
[2017-05-19] MEDS: Metoprolol Tartrate TAB* 25 MG PO SCH (09:59)
[2017-05-19] MEDS: oxyCODONE/Acetamin 5/325 MG* TAB PO PRN (10:00)
[2017-05-19] MEDS: Insulin LISPRO* 1 UNITS UNIT SUBCUT SCH ×4 (10:02→13:40)
[2017-05-19] MEDS ORDERED: Iodixanol* (CONTRAST) 320 MG/ML 100 ML SDV IV SCH (12:32)
--- NOTE | 2017-05-19 13:31 | RAD ---
INDICATION: Chest pain. COMPARISON: Comparison is made with a prior CT angiogram of the chest from June 14, 2015. Correlation is also made with a prior portable chest x-ray study from May 17, 2017. TECHNIQUE: A CT angiogram of the chest was performed with intravenous following intravenous injection of 96 ml of Visipaque 320 nonionic contrast. Contiguous axial sections were obtained from the lung apices through the lung bases. Images were reconstructed in the coronal and sagittal planes. The exam is limited due to the patient's body habitus. FINDINGS: There is relatively homogeneous opacification of the pulmonary arteries. No intraluminal filling defect or pulmonary embolism is seen. The heart is within normal limits in size. No pericardial effusion is present. The thoracic aorta is normal in caliber and demonstrates homogeneous contrast opacification. There is a small amount of fluid adjacent to the aortic arch most likely within the pericardial recess. No significant enlarged mediastinal or hilar lymph nodes are seen. There is a moderate sized lateral hernia present. There is mild dependent bilateral lower lobe subsegmental atelectasis. The lungs are otherwise clear. No pleural effusion or pneumothorax is seen. Images of the upper abdomen demonstrate fatty infiltration of the liver. There is a small hypodense area in the posterior segment of the right hepatic lobe which correlates with a hypervascular lesion noted on the prior CT of the abdomen from July 29, 2015 and appears grossly unchanged in size. No acute findings are seen. No significant focal osseous abnormality is seen. IMPRESSION: 1. SLIGHTLY LIMITED EXAM, NO EVIDENCE FOR PULMONARY EMBOLISM. 2. MODERATE SIZE HIATAL HERNIA. 3. HEPATIC STEATOSIS.
[2017-05-19] MEDS: traMADol TAB* 50 MG PO PRN (13:42)
[2017-05-19] MEDS ORDERED: Enoxaparin(*) 150 MG/ML 1 ML SYRINGE SUBCUT SCH (14:00)
[2017-05-19] MEDS ORDERED: Enoxaparin(*) 100 MG/ML SYR SUBCUT SCH (14:00)
[2017-05-19] MEDS ORDERED: Enoxaparin(*) 30 MG/0.3 ML SYR SUBCUT SCH (14:00)
[2017-05-19] MEDS ORDERED: Warfarin TAB(*) 5 MG PO ONE (15:00)
[2017-05-19 15:42] VITALS: BP 121/76
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
== END 2017-05-19 16:19 | disposition home or self-care (01) | DRG 198 ==
LOC: ED 17:13 → MEDTELE 19:46 → OBSVTOIN 05-18 17:15
PROVIDERS: ADMIT Hospitalist; ATTEND Internal Medicine
DX: R07.9 Chest pain, unspecified (principal); I25.2 Old myocardial infarction; I74.2 Embolism and thrombosis of arteries of the upper extremities; D68.59 Other primary thrombophilia; Z68.42 Body mass index [BMI] 45.0-49.9, adult; E66.01 Morbid (severe) obesity due to excess calories; I10 Essential (primary) hypertension; E11.9 Type 2 diabetes mellitus without complications; I25.10 Atherosclerotic heart disease of native coronary artery without angina pectoris; J45.909 Unspecified asthma, uncomplicated; G89.4 Chronic pain syndrome; K44.9 Diaphragmatic hernia without obstruction or gangrene; M79.7 Fibromyalgia; F32.9 Major depressive disorder, single episode, unspecified; F43.10 Post-traumatic stress disorder, unspecified; F41.9 Anxiety disorder, unspecified; F39 Unspecified mood [affective] disorder; M54.9 Dorsalgia, unspecified; K21.9 Gastro-esophageal reflux disease without esophagitis; R40.2412 Glasgow coma scale score 13-15, at arrival to emergency department; M25.562 Pain in left knee; D50.9 Iron deficiency anemia, unspecified; K76.0 Fatty (change of) liver, not elsewhere classified; Z86.711 Personal history of pulmonary embolism; Z82.49 Family history of ischemic heart disease and other diseases of the circulatory system; Z83.3 Family history of diabetes mellitus; Z83.2 Family history of diseases of the blood and blood-forming organs and certain disorders involving the immune mechanism; Z83.49 Family history of other endocrine, nutritional and metabolic diseases; Z91.048 Other nonmedicinal substance allergy status; Z79.4 Long term (current) use of insulin; Z79.82 Long term (current) use of aspirin; Z79.01 Long term (current) use of anticoagulants
CPT/HCPCS: 36415; 71010; 71275; 78452; 80048; 80053; 83036; 83605; 84484; 85025; 85379; 85610; 85730; 93005; 93017; 94640; 94760; A9270-GY; A9502; G0378; J1644; J1650; J2270; J2405; J2785; Q9967

== ENCOUNTER 2018-06-08 07:06 | Emergency (ER) | payer OTHER ==
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
[2018-06-08 09:30] LABS: ABS Basophils 0.1 10^3/ul (0-0.2); ABS Eosinophils 0.1 10^3/ul (0-0.6); ABS Lymphocytes 3.2 10^3/ul (1.0-4.8); ABS Monocytes 0.7 10^3/ul (0-0.8); ABS Neutrophils 4.4 10^3/ul (1.5-7.7); ABS Nucleated RBC 0 10^3/ul; Eosinophil % 1.4 % (0-6); Hematocrit 29 % (35-47); Hemoglobin 9.3 g/dl (12.0-16.0); Lymphocyte % 37.8 % (25-47); Mean Corpuscular HGB Conc 32 g/dl (31-36); Mean Corpuscular Hemoglobin 24 pg (27-31); Mean Corpuscular Volume 76 fL (80-97); Mean Platelet Volume 6.9 um3 (7.4-10.4); Nucleated Red Blood Cells % 0; Platelet Count 452 10^3/ul (150-450); Red Blood Count 3.81 10^6/ul (4.00-5.40); Red Cell Distribution Width 17 % (10.5-15); White Blood Count 8.5 10^3/ul (3.5-10.8)
[2018-06-08 09:40] LABS: INR 2.5 (0.77-1.02)
[2018-06-08 10:01] LABS: EGFR Non-African American 86.2 (>60)
[2018-06-08 10:08] LABS: Urine Appearance Cloudy; Urine Blood 1+ (Negative); Urine Color Yellow; Urine Ketones Negative (Negative); Urine Protein Negative (Negative); Urine Red Blood Cell 1+(3-5/hpf) (Absent); Urine Specific Gravity 1.019 (1.010-1.030); Urine Urobilinogen Negative (Negative); Urine White Blood Cell 3+(>20/hpf) (Absent)
[2018-06-08] MEDS ORDERED: Ciprofloxacin TAB* 500 MG PO ONE (10:28)
[2018-06-08] MEDS ORDERED: Phenazopyridine TAB* 100 MG PO ONE (10:28)
[2018-06-08 11:37] VITALS: BP 115/59
--- NOTE | 2018-06-11 07:05 | PN ---
Progress Note - Progress Note Date of Service: 06/08/18 Note: Pt. seen in ER 06/08 and dx with a UTI. She was placed on Cipro. Urine culture today is growing >100,000 e. coli susceptible to cipro. No change in treatment needed at this time.
== END 2018-06-08 11:36 | disposition home or self-care (01) ==
LOC: ED 07:06
DX: N39.0 Urinary tract infection, site not specified (principal); D64.9 Anemia, unspecified; E11.9 Type 2 diabetes mellitus without complications; I25.2 Old myocardial infarction; Z79.4 Long term (current) use of insulin; Z79.01 Long term (current) use of anticoagulants
CPT/HCPCS: 36415; 80053; 81003; 81015; 83605; 83690; 83735; 84702; 85025; 85610; 85730; 86140; 87077; 87086; 87186; 99283; A9270-GY

== ENCOUNTER 2019-05-23 04:41 | Emergency (ER) | payer OTHER ==
[2019-05-23 06:08] LABS: Hematocrit 38 % (35-47); Hemoglobin 12.8 g/dL (12.0-16.0); Mean Corpuscular HGB Conc 34 g/dL (31-36); Mean Corpuscular Hemoglobin 30 pg (27-31); Mean Corpuscular Volume 88 fL (80-97); Mean Platelet Volume 7.7 fL (7.4-10.4); Platelet Count 315 10^3/uL (150-450); Red Blood Count 4.33 10^6 /uL (3.70-4.87); Red Cell Distribution Width 16 % (10-15); White Blood Count 7.4 10^3/uL (3.5-10.8)
[2019-05-23 06:28] LABS: Albumin 4.1 g/dL (3.2-5.2); Albumin/Globulin Ratio 1.5 (1-3); BUN/Creatinine Ratio 21.4 (8-20); C Reactive Protein 6.26 mg/L (<8.01); Calcium 9.1 mg/dL (8.6-10.3); EGFR Non-African American 90.1 (>60); Globulin 2.7 g/dL (2-4); Potassium 3.7 mmol/L (3.5-5.0); Total Bilirubin 0.4 mg/dL (0.2-1.0); Total Protein 6.8 g/dL (6.4-8.9)
[2019-05-23] MEDS ORDERED: predniSONE TAB* 50 MG PO ONE (08:07)
--- NOTE | 2019-05-23 08:25 | ED ---
HPI Cardiac - HPI Summary HPI Summary: This patient is a 44-year-old female who presents to the ED with diffuse body aches and pain, worse to the left side of the chest and left arm. Patient receives iron infusions every 2 weeks and following she typically has arthralgias and myalgias present. She was concerned as well she continues to have arthralgias and myalgias following this iron infusion, she is having left- sided chest pain as well. History of PE and VT per patient. Currently on blood thinners. Denies any SOB. Denies abdominal pain, nausea, vomiting. Denies diaphoresis. She states her bilateral hands have been tingling since the infusion, but denies any pain. Patient is anxious on arrival into the ED. - History of Current Complaint Chief Complaint: EDGeneral Stated Complaint: L SIDE PAIN PER PT Time Seen by Provider: 05/23/19 05:37 Hx Obtained From: Patient Hx Last Menstrual Period: 03/06/16 Onset/Duration: Started Hours Ago Timing: Constant Initial Severity: Moderate Current Severity: Moderate Pain Intensity: 10 Pain Scale Used: 0-10 Numeric Chest Pain Radiates: No Aggravating Factor(s): Nothing Alleviating Factor(s): Nothing Associated Signs and Symptoms: Positive: Negative - Risk Factors Pulmonary Embolism Risk Factors: Previous PE Cardiac Risk Factors: Negative AMI/ACS Risk Factors: Myocardial Infarction Pseudomonas Risk Factors: Negative Tuberculosis Risk Factors: Negative - Additional Pertinent History Primary Care Physician: [id number] - Allergy/Home Medications Allergies/Adverse Reactions: Allergies Allergy/AdvReac Type Severity Reaction Status Date / Time No Known Allergies Allergy Verified 05/23/19 04:46 PMH/Surg Hx/FS Hx/Imm Hx Endocrine/Hematology History: Reports: Hx Anticoagulant Therapy, Hx Diabetes - II - on insulin Cardiovascular History: Reports: Hx Angina, Hx Coronary Artery Disease, Hx Hypercholesterolemia, Hx Hypertension, Hx Myocardial Infarction, Other Cardiovascular Problems/Disorders Denies: Hx Congestive Heart Failure, Hx Peripheral Vascular Disease, Hx Valvular Heart Disease Respiratory History: Reports: Hx Asthma, Hx Pulmonary Embolism Denies: Hx Chronic Obstructive Pulmonary Disease (COPD) GI History: Reports: Hx Gastroesophageal Reflux Disease, Hx Hiatal Hernia History: Denies: Hx Dialysis, Hx Renal Disease Musculoskeletal History: Reports: Hx Back Problems - pain clinic, Hx Fibromyalgia Denies: Hx Arthritis, Hx Osteoporosis Sensory History: Reports: Hx Contacts or Glasses Denies: Hx Hearing Aid Opthamlomology History: Reports: Hx Contacts or Glasses Neurological History: Denies: Hx Headaches, Hx Seizures, Hx Transient Ischemic Attacks (TIA) Psychiatric History: Reports: Hx Anxiety, Hx Depression - Cancer History Hx Chemotherapy: No Hx Radiation Therapy: No - Surgical History Surgery Procedure, Year, and Place: knee arthroscopy, tonsillectomy Infectious Disease History: No Infectious Disease History: Denies: Traveled Outside the [place] in Last 30 Days - Family History Known Family History: Positive: Cardiac Disease, Other - NONCONTIBUTORY - Social History Occupation: Unemployed Lives: Alone Alcohol Use: None Hx Substance Use: Yes Substance Use Type: Reports: Prescribed Substance Use Comment - Amount & Last Used: has Percocet for pain as needed for back issues Hx Tobacco Use: No Smoking Status (MU): Never Smoked Tobacco Have You Smoked in the Last Year: No Review of Systems Negative: Fever, Chills, Fatigue, Skin Diaphoresis Negative: Dental Pain, Sore Throat Positive: Chest Pain Negative: Shortness Of Breath, Cough Negative: Abdominal Pain, Vomiting, Diarrhea, Nausea Positive: Arthralgia, Myalgia Skin: Negative Positive: Paresthesia - fingertips intermittently since infusion. Negative: Headache, Weakness, Numbness, Syncope Psychological: Normal All Other Systems Reviewed And Are Negative: Yes Physical Exam Triage Information Reviewed: Yes Vital Signs On Initial Exam: Initial Vitals Temp Pulse Resp BP Pulse Ox 97.4 F 112 16 162/107 98 05/23/19 04:43 05/23/19 04:43 05/23/19 04:43 05/23/19 04:43 05/23/19 04:43 Vital Signs Reviewed: Yes Appearance: Positive: Well-Nourished, Pain Distress - crying on arrival Skin: Positive: Warm, Skin Color Reflects Adequate Perfusion Head/Face: Positive: Normal Head/Face Inspection Eyes: Positive: EOMI, Conjunctiva Clear Neck: Positive: Supple, No Lymphadenopathy Respiratory/Lung Sounds: Positive: Clear to Auscultation, Breath Sounds Present Cardiovascular: Positive: RRR, Pulses are Symmetrical in both Upper and Lower Extremities Musculoskeletal: Positive: Strength/ROM Intact Neurological: Positive: Sensory/Motor Intact, Alert, Oriented to Person Place, Time, Speech Normal Psychiatric: Positive: Affect/Mood Appropriate Diagnostics - Vital Signs Vital Signs Temp Pulse Resp BP Pulse Ox 05/23/19 06:00 79 20 97 07/26/19 05:32 95 18 148/80 96 05/23/19 05:02 98 17 139/98 97 05/23/19 05:00 18 05/23/19 04:43 97.4 F 112 16 162/107 98 - Laboratory Lab Results: Lab Results 05/23/19 05/23/19 05/23/19 Range/Units 05:59 05:59 05:59 WBC 7.4 (3.5-10.8) 10^3/uL RBC 4.33 (3.70-4.87) 10^6 /uL Hgb 12.8 (12.0-16.0) g/dL Hct 38 (35-47) % MCV 88 (80-97) fL MCH 30 (27-31) pg MCHC 34 (31-36) g/dL RDW 16 H (10-15) % Plt Count 315 (150-450) 10^3/uL MPV 7.7 (7.4-10.4) fL Sodium 137 (135-145) mmol/L Potassium 3.7 (3.5-5.0) mmol/L Chloride 106 (101-111) mmol/L Carbon Dioxide 25 (22-32) mmol/L Anion Gap 6 (2-11) mmol/L BUN 15 (6-24) mg/dL Creatinine 0.70 (0.51-0.95) mg/dL Est GFR ( Amer) 109.0 (>60) Est GFR (Non-Af Amer) 90.1 (>60) BUN/Creatinine Ratio 21.4 H (8-20) Glucose 142 H (70-100) mg/dL Lactic Acid 1.0 (0.5-2.0) mmol/L Calcium 9.1 (8.6-10.3) mg/dL Iron 78 (50-212) ug/dL Total Bilirubin 0.40 (0.2-1.0) mg/dL AST 12 L (13-39) U/L ALT 11 (7-52) U/L Alkaline Phosphatase 85 (34-104) U/L Troponin I 0.00 (<0.04) ng/mL C-Reactive Protein 6.26 (<8.01) mg/L Total Protein 6.8 (6.4-8.9) g/dL Albumin 4.1 (3.2-5.2) g/dL Globulin 2.7 (2-4) g/dL Albumin/Globulin Ratio 1.5 (1-3) Vitamin B12 396 (180-914) pg/mL Result Diagrams: 05/23/19 05:59 05/23/19 05:59 Lab Statement: Any lab studies that have been ordered have been reviewed, and results considered in the medical decision making process. Re-Evaluation - Re-Evaluation First Eval Re-Evaluation Time: 05:30 Comment: Patient appears very anxious on arrival and crying when provider walks into the room Second Eval Re-Evaluation Time: 06:20 Change: Improved - patient resting comfortably - sleeping when provider is in room Third Eval Change: Improved - pt sleeping on re-examination, states she still "feels tightness throughtout my whole L side" but this has improved Fourth Eval Change: Unchanged - continues to sleep and in NAD, non-diaphoretic. Denies pain Disposition - Course Course Of Treatment: Patient has been receiving iron infusions. She was also concerned for her heart due to her left-sided chest pain which is worse in the right side. Typically she has arthralgias and myalgias diffusely throughout following her infusions. Troponin obtained which is 0.00. Chest x-ray shows no acute cardiopulmonary disease. During the course, the patient is resting comfortably, sleeping and in no acute distress. Nondiaphoretic and nontoxic appearing. Iron obtained which is 78. Vitamin B 12 is 396. Other labs unremarkable. She will be discharged with arthralgia and myalgias related to iron infusion. No evidence of cardiac pathology. VS remained stable throughout her stay. - Differential Dx - Cardiopulmonary Differential Diagnoses - Cardiopulmonary: Other - myalgias, arthralgias - Diagnoses Provider Diagnoses: Infusion reaction Discharge - Sign-Out/Discharge Documenting (check all that apply): Patient Departure Patient Received Moderate/Deep Sedation with Procedure: No - Discharge Plan Condition: Stable Disposition: HOME Prescriptions: predniSONE TAB* [Deltasone TAB*] 50 mg PO DAILY #4 tab MDD 1 Patient Education Materials: Iron Rich Diet (ED), Arthralgia (ED) Referrals: No Primary Care Phys,NOPCP [Primary Care Provider] - Additional Instructions: Please follow up with your PCP as soon as possible Iron today was 78 Prednisone once daily x 5 days to help with the inflammatory process associated with muscle aches from infusion Your first dose was given today Next dose is tomorrow morning If you develop any worsening symptoms, return to the ED - Billing Disposition and Condition Condition: STABLE Disposition: Home
[2019-05-23 08:30] VITALS: BP 141/90
== END 2019-05-23 08:30 | disposition home or self-care (01) ==
LOC: ED 04:41
DX: T80.89XA Other complications following infusion, transfusion and therapeutic injection, initial encounter (principal); Y92.9 Unspecified place or not applicable; Z79.01 Long term (current) use of anticoagulants; E11.9 Type 2 diabetes mellitus without complications; Z79.4 Long term (current) use of insulin; I25.119 Atherosclerotic heart disease of native coronary artery with unspecified angina pectoris; E78.00 Pure hypercholesterolemia, unspecified; I10 Essential (primary) hypertension; I25.2 Old myocardial infarction; J45.909 Unspecified asthma, uncomplicated; Z86.711 Personal history of pulmonary embolism
CPT/HCPCS: 36415; 71046; 80053; 82607; 83540; 83605; 84484; 85027; 86140; 93005; 99283; J7512

== ENCOUNTER 2019-07-23 15:35 | Inpatient (IN) | payer OTHER ==
--- NOTE | 2019-07-23 18:01 | ED ---
Shortness of Breath - HPI Summary HPI Summary: Patient is a 44-year-old female who presents to emergency department for complaints of shortness of breath, chest pressure, nausea, pain into left arm times one day. Patient has a history of obesity, diabetes, hypertension, hyperlipidemia, hypercoagulable disorder, CAD. Patient states her symptoms today feel the same as when she had her heart attack 2 years ago. Patient also notes she is a history of anemia and receives iron infusions. Patient states she's noticed her stools have been darker lately. Symptoms are moderate in severity. No current modifying factors. - History of Current Complaint Chief Complaint: EDShortnessOfBreath Time Seen by Provider: 07/23/19 17:38 Hx Obtained From: Patient - Allergy/Home Medications Allergies/Adverse Reactions: Allergies Allergy/AdvReac Type Severity Reaction Status Date / Time No Known Allergies Allergy Verified 07/23/19 18:53 Home Medications: Home Medications Apixaban* [Eliquis*] 5 mg PO BID 07/23/19 [History Confirmed 07/23/19] Hydrocortisone 0.5% OINT* 1 applic TOPICAL BID PRN 07/23/19 [History Confirmed 07/23/19] Oxycodone HCl/Acetaminophen [Percocet] 1 tab PO Q6HR PRN 07/23/19 [History Confirmed 07/23/19] Propranolol TAB* [Inderal TAB*] 10 mg PO DAILY 07/23/19 [History Confirmed 07/23] dilTIAZem HCl [Diltiazem 24Hr ER] 240 mg PO DAILY 07/23/19 [History Confirmed ] PMH/Surg Hx/FS Hx/Imm Hx Previously Healthy: Yes Endocrine/Hematology History: Reports: Hx Anticoagulant Therapy, Hx Diabetes - II - on insulin Cardiovascular History: Reports: Hx Angina, Hx Coronary Artery Disease, Hx Hypercholesterolemia, Hx Hypertension, Hx Myocardial Infarction, Other Cardiovascular Problems/Disorders Denies: Hx Congestive Heart Failure, Hx Peripheral Vascular Disease, Hx Valvular Heart Disease Respiratory History: Reports: Hx Asthma, Hx Pulmonary Embolism Denies: Hx Chronic Obstructive Pulmonary Disease (COPD) GI History: Reports: Hx Gastroesophageal Reflux Disease, Hx Hiatal Hernia History: Denies: Hx Dialysis, Hx Renal Disease Musculoskeletal History: Reports: Hx Back Problems - pain clinic, Hx Fibromyalgia Denies: Hx Arthritis, Hx Osteoporosis Sensory History: Reports: Hx Contacts or Glasses Denies: Hx Hearing Aid Opthamlomology History: Reports: Hx Contacts or Glasses Neurological History: Denies: Hx Headaches, Hx Seizures, Hx Transient Ischemic Attacks (TIA) Psychiatric History: Reports: Hx Anxiety, Hx Depression - Cancer History Hx Chemotherapy: No Hx Radiation Therapy: No - Surgical History Surgery Procedure, Year, and Place: knee arthroscopy, tonsillectomy Infectious Disease History: No Infectious Disease History: Denies: Traveled Outside the [place] in Last 30 Days - Family History Known Family History: Positive: Cardiac Disease, Other - NONCONTIBUTORY - Social History Occupation: Unemployed Lives: With Family Alcohol Use: None Hx Substance Use: Yes Substance Use Type: Reports: Prescribed Substance Use Comment - Amount & Last Used: has Percocet for pain as needed for back issues Hx Tobacco Use: No Smoking Status (MU): Never Smoked Tobacco Have You Smoked in the Last Year: No Review of Systems Constitutional: Negative Negative: Fever, Chills Positive: Chest Pain Positive: Shortness Of Breath. Negative: Cough Positive: Nausea. Negative: Abdominal Pain, Vomiting, Diarrhea Genitourinary: Negative Positive: Headache All Other Systems Reviewed And Are Negative: Yes Physical Exam Triage Information Reviewed: Yes Vital Signs On Initial Exam: Initial Vitals Temp Pulse Resp BP Pulse Ox 98.5 F 90 18 152/98 98 07/23/19 15:37 07/23/19 15:37 07/23/19 15:37 07/23/19 15:37 07/23/19 15:37 Vital Signs Reviewed: Yes Appearance: Positive: Well-Appearing - Pt. sitting on side of bed in NAD. Appears anxious. Breathing easily on RA. Skin: Positive: Warm, Dry Head/Face: Positive: Normal Head/Face Inspection Eyes: Positive: Normal, EOMI, RANJANA Neck: Positive: Supple Respiratory/Lung Sounds: Positive: Clear to Auscultation, Breath Sounds Present Cardiovascular: Positive: Normal, RRR Abdomen Description: Positive: Other: - morbidly obese. Abd. is soft with minimal tender to epigastric region. Rectal exam performed with pt.'s nurse, Rebeca RODRIGUEZ. No active bleeding. Digital exam reveals small amount of dark brown/ black stool. 2cm skin tear to right buttocks without signs of infection. Musculoskeletal: Positive: Normal, Strength/ROM Intact. Negative: Edema Left, Edema Right Neurological: Positive: Normal, CN Intact II-III Diagnostics - Vital Signs Vital Signs Temp Pulse Resp BP Pulse Ox 07/23/19 15:37 98.5 F 90 18 152/98 98 - Laboratory Result Diagrams: 07/23/19 19:12 07/23/19 21:25 Lab Statement: Any lab studies that have been ordered have been reviewed, and results considered in the medical decision making process. Course/Dx - Course Course Of Treatment: Patient presenting with the above complaints. She is afebrile with stable vital signs. Patient has significant past medical history and risk factors for CAD. EKG done at 1545 shows a sinus rhythm of 89 bpm, normal axis, no ST elevation or depression. Blood work is unremarkable so far. Given patient's risk factors and presenting symptoms hospitalist was contacted for admission. Case discussed with hospitalist, Dr. Freitas, who accepts patient to her service. - Diagnoses Differential Diagnosis/HQI/PQRI: Positive: Chest Wall Pain, [place], Pneumonia, Unstable Angina Provider Diagnoses: Chest pain Discharge ED - Sign-Out/Discharge Documenting (check all that apply): Patient Departure Patient Received Moderate/Deep Sedation with Procedure: No - Discharge Plan Condition: Stable Disposition: ADMITTED TO [facility] - Billing Disposition and Condition Condition: STABLE Disposition: Admitted to [facility]
[2019-07-23 19:31] LABS: ABS Eosinophils 0.1 10^3/ul (0-0.6); ABS Lymphocytes 3.2 10^3/ul (1.0-4.8); ABS Monocytes 0.4 10^3/ul (0-0.8); ABS Neutrophils 4.1 10^3/ul (1.5-7.7); Eosinophil % 0.9 %; Hematocrit 43 % (35-47); Hemoglobin 14.6 g/dL (12.0-16.0); Lymphocyte % 40.9 %; Mean Corpuscular HGB Conc 34 g/dL (31-36); Mean Corpuscular Hemoglobin 31 pg (27-31); Mean Corpuscular Volume 91 fL (80-97); Mean Platelet Volume 8.2 fL (7.4-10.4); Nucleated Red Blood Cells % 0.1; Platelet Count 368 10^3/uL (150-450); Red Blood Count 4.73 10^6 /uL (3.70-4.87); Red Cell Distribution Width 15 % (10-15); White Blood Count 7.8 10^3/uL (3.5-10.8)
[2019-07-23] MEDS ORDERED: Bacitracin OINTMENT* 0.5% 0.5 oz TUBE TOPICAL ONE (19:35)
[2019-07-23 19:44] LABS: Activated Partial Thrombo Time 24.3 seconds (26.0-38.0); INR 0.99 (0.82-1.09)
[2019-07-23 19:59] LABS: ALT 12 U/L (7-52); Albumin 4.5 g/dL (3.2-5.2); Albumin/Globulin Ratio 1.4 (1-3); Alkaline Phosphatase 87 U/L (34-104); BUN/Creatinine Ratio 15.2 (8-20); Blood Urea Nitrogen 10 mg/dL (6-24); CO2 Carbon Dioxide 23 mmol/L (22-32); Calcium 9.4 mg/dL (8.6-10.3); Chloride 103 mmol/L (101-111); EGFR African American 116.7 (>60); EGFR Non-African American 96.4 (>60); Globulin 3.2 g/dL (2-4); Glucose 126 mg/dL (70-100); Sodium 134 mmol/L (135-145); Total Protein 7.7 g/dL (6.4-8.9)
[2019-07-23 20:02] LABS: Anion Gap 8 mmol/L (2-11)
[2019-07-23] MEDS ORDERED: Al Hydrox/Mg Hydrox/Simet LIQ* 30 ML UDC PO PRN (21:40)
[2019-07-23] MEDS ORDERED: Acetaminophen TAB* 325 MG PO PRN (21:40)
[2019-07-23] MEDS ORDERED: Albuterol HFA INHALER* 8 gm MDI INH PRN (21:48)
[2019-07-23] MEDS ORDERED: Fluticasone NASAL SPRAY 50MCG* 16 gm SPRAY BTL BOTH NARES PRN (21:48)
[2019-07-23 22:05] LABS: Magnesium 1.9 mg/dL (1.9-2.7); Potassium Redraw 4.3 mmol/L (3.5-5.0)
[2019-07-23] MEDS ORDERED: Dextrose 50% VIAL 50 ml IV PUSH PRN (22:29)
[2019-07-24] MEDS: oxyCODONE/Acetamin 5/325 MG* TAB PO PRN ×3 (00:13→17:40)
[2019-07-24] MEDS: Ondansetron TAB* 4 MG PO PRN ×2 (00:13→17:40)
[2019-07-24] MEDS: Zolpidem TAB* 5 MG PO PRN ×2 (00:14→20:44)
--- NOTE | 2019-07-24 01:01 | HP ---
CC: Dr. Roberto; Adria Ball DO * HISTORY AND PHYSICAL: DATE OF ADMISSION: 07/23/19 PRIMARY CARE PROVIDER: Morteza Tamez. OUTPATIENT SCALEHOUSE ATTENDANT: Adria Ball DO. ATTENDING PHYSICIAN: Dr. Rozina Freitas.* (DICTATED BY TERESITA DAY NP) CHIEF COMPLAINT: Malaise. HISTORY OF PRESENT ILLNESS: Ms. Menjivar is a 44-year-old female with past medical history of a hypercoagulable state, STEMI, PE, diabetes, iron deficiency anemia, asthma, fibromyalgia, depression, and anxiety who presents to the emergency room today with malaise and generalized symptoms. The patient reports that she has not been feeling well for a few weeks, though symptoms have gotten particularly worse within the last week. Symptoms are varied and quite vague. The patient reports shortness of breath. This is worse with lying down and she feels as though "someone is covering my face." She reports some intermittent "zapping" chest pain. She is also having some abdominal pain, which she describes as "heavy." This is not particularly constant, but she does note tenderness. She has had some nausea, but no vomiting. Appetite is not affected. She generally feels weak and lightheaded. She notes some cramping down the back of her legs and feels as though she has "squishy bones." She additionally has some tingling in her toes. There is nothing in particular that makes any of these symptoms better or worse, though she notes that she did take 2 Nitro yesterday with some relief. She additionally notes some tarry stool. She is not sure when this started, though it was somewhat recent. She did have a recent GI workup due to anemia and it sounds as though she had a capsule endoscopy and a colonoscopy at [facility], and they were not able to find any source of bleeding in her GI tract at that time. She reports she has been taking her Eliquis as prescribed. She missed one dose recently, but took that dose later that night. The patient is quite emotional during our conversation and frequently is tearful. She states that these symptoms are different than her symptoms she experienced prior to her LA in 2014, though states that she did have many generalized symptoms then and so these symptoms are now concerning for her that there is some acute process going on and she is fearful that she may . She is, otherwise, able to have a normal conversation with me. In the emergency room, the patient had lab work, which was unremarkable. She did have a stool occult, which was positive. Vital signs were noted to be stable. She had an EKG consistent with her baseline and an unremarkable chest x -ray. Because of her cardiac history, the hospitalist service was asked to evaluate for admission. PAST MEDICAL HISTORY: 1. CAD with STEMI in 2015. 2. Pulmonary embolism in 2015. 3. Hypercoagulable state. 4. Diabetes mellitus type 2. 5. Iron deficiency anemia. 6. Asthma. 7. Hiatal hernia. 8. Chronic pain. 9. Fibromyalgia. 10. Depression. 11. PTSD. 12. Anxiety. 13. Mood disorder. 14. Hyperlipidemia. 15. Morbid obesity. PAST SURGICAL HISTORY: 1. Cardiac catheterization in 2014 with subsequent right radial arterial occlusion. 2. Aspiration thrombectomy of RPO/PDA. HOME MEDICATIONS: 1. Albuterol MDI 2 puffs 4 times a day p.r.n. for shortness of breath or wheezing. 2. Eliquis 5 mg p.o. b.i.d. 3. Aspirin 81 mg p.o. daily. 4. Atorvastatin 40 mg p.o. at bedtime. 5. Citalopram 40 mg p.o. daily. 6. Diltiazem ER 240 mg p.o. daily. 7. Docusate 100 mg p.o. b.i.d. 8. Fluticasone nasal spray, 2 sprays to both nares daily p.r.n. for congestion. 9. Glipizide 5 mg p.o. daily. 10. Hydrochlorothiazide 12.5 mg p.o. daily. 11. Hydrocortisone 0.5% ointment, 1 application topically b.i.d. p.r.n. for itching. 12. Glargine 87 units subcu at bedtime. 13. Lispro subcu sliding scale 0 to 8 units. 14. Isosorbide mononitrate ER 60 mg p.o. daily. 15. Levocetirizine 5 mg p.o. daily p.r.n. for allergy symptoms. 16. Metoprolol tartrate 37.5 mg p.o. b.i.d. 17. Dulera 200/5 one puff b.i.d. 18. Nitro 0.4 mg sublingual q.5 minutes p.r.n. for chest pain. 19. Omeprazole 40 mg p.o. daily. 20. Ondansetron 4 mg p.o. b.i.d. p.r.n. for nausea and vomiting. 21. Percocet 7.5/325 one tab p.o. q.6 hours p.r.n. for pain. 22. Propranolol 10 mg p.o. daily. 23. Ambien 5 to 10 mg p.o. at bedtime p.r.n. for insomnia. ALLERGIES: No known drug allergies. FAMILY HISTORY: The patient has 10 siblings. She did have a sister who of PE at the age of 21 and a family history significant for CAD, hypertension, hyperlipidemia, and diabetes. SOCIAL HISTORY: The patient denies any tobacco, alcohol, or recreational drug use. She is disabled. She lives at home with her fiance and her granddaughter, whom she has custody of after her son was murdered last year. The patient's daughter, Lorene Summers, will be her surrogate decision maker in the event she is unable to make her own decisions. REVIEW OF SYSTEMS: An 11-point systems was performed, which was essentially taylor positive. So, negatives include fevers, anorexia, edema, cough, dysuria, focal weakness, and rash. PHYSICAL EXAMINATION GENERAL: Ms. Menjivar is a well-developed, well-nourished, obese black woman, sitting in bed, in no acute distress. She appears her stated age. She is able to easily converse. VITAL SIGNS: Temp 98.5, heart rate 88, respiratory rate 22, oxygen saturation 99% on room air, blood pressure 120/91. HEENT: Head is atraumatic, normocephalic. Visual tierney are grossly intact. Pupils are equal, round, and reactive to light and accommodation. Extraocular movements are intact. Oral mucous membranes moist. NECK: Trachea midline. No lymphadenopathy. RESPIRATORY: Symmetrical chest expansion. No chest wall deformities. Lungs clear to auscultation throughout. No rhonchi, wheezes, or rubs. CARDIOVASCULAR: Regular rate and rhythm. S1, S2 present. No murmurs, rubs, or gallops. No JVD. ABDOMEN: Soft, tender to palpation throughout. Bowel sounds are normoactive. EXTREMITIES: Skin is warm and smooth bilaterally. No edema. No clubbing or cyanosis. Pedal pulses 2+ bilaterally. NEUROLOGIC: Awake, alert, and oriented x4. Cranial nerves II through XII grossly intact. Moves all extremities. SKIN: There is a quarter-size abrasion to the patient's right buttock. DIAGNOSTIC STUDIES AND LABORATORY DATA: WBC 7.8, RBC 4.73, hemoglobin 14.6, hematocrit 43, platelets 368. INR 0.99. Sodium 134, potassium pending, chloride 103, carbon dioxide 23, BUN 10, creatinine 0.66, glucose 126, lactic acid 1.1. First troponin 0.00, second troponin 0.00. EKG shows normal sinus rhythm with rate of 89. QTc 449. This appears generally consistent with her previous EKG on file from April 2019. Chest x-ray to my read shows no acute cardiopulmonary disease. ASSESSMENT AND PLAN: Ms. Menjivar is a 44-year-old female with complex past medical history including hypercoagulable state, pulmonary embolism, myocardial infarction, hypertension, diabetes, asthma, iron deficiency anemia, and fibromyalgia who presents to the emergency room today with malaise and generalized symptoms including shortness of breath and was found to have a positive guaiac. The patient will be admitted on observation for: 1. Shortness of breath: The patient reports that the shortness of breath is worse when lying down, but not necessarily worse with exertion. She is able to have a normal conversation with me and did not appear dyspneic at all during the conversation nor did she complain of any particular shortness of breath while speaking with me. There is no evidence of pneumonia or other infection. I do not think this represents an asthma exacerbation as there is no wheezing. We will obtain a transthoracic echocardiogram because the shortness of breath is worse when she is lying to rule out any congestive heart failure, though I think that is quite unlikely at this point. I think PE is unlikely as she has been on Eliquis so I will not obtain at CTA at this time. 2. Melena: The patient does report recent tarry stools and is noted to have a positive stool occult, though hemoglobin and hematocrit are normal. She did have a full GI workup recently including colonoscopy and capsule endoscopy at [facility] and we will obtain these records tomorrow. I think it is very likely that she may have a very small bleed as she is on anticoagulation, but at this point because she is not anemic and there is not any radha blood, I think it would be riskier to hold her anticoagulation, so we will recheck an H and H in the morning to ensure it remains stable and await records. The patient is already on a PPI, which I will continue. 3. Generalized symptoms: The patient reports general malaise including nausea , weakness, abdominal pain, lower extremity pain, tingling in her toes, and an intermittent "zapping" pain in her chest and upper abdomen. Her symptoms are very vague and none of them is severe in nature. I think there is certainly a psychiatric component as she did become emotional multiple times during our conversation and is fearful of having another acute event because of her history of myocardial infarction. Outpatient cardiology notes do indicate that the patient complains of chronic chest pain. It is possible that she may have some sort of viral illness, though generally none of these symptoms is particularly concerning at this time and we will continue to monitor. 4. Hypercoagulable state with history of pulmonary embolism: Again, the patient does have melena, but at this point it would be riskier to hold her anticoagulations, so we will continue Eliquis at this time. PE is low on the differential at this time as she has been taking Eliquis as prescribed. 5. Coronary artery disease: The patient has had 2 negative troponins and an EKG consistent with her baseline. I am not concerned about any acute coronary syndrome at this point, but we will check a third troponin. The patient does indicate that she is scheduled for an outpatient stress test next week for preoperative clearance for a hiatal hernia repair. I will continue aspirin, atorvastatin, isosorbide mononitrate, metoprolol, and propranolol. 6. Hypertension: The patient is normotensive in the emergency room. We will continue diltiazem, hydrochlorothiazide, isosorbide, metoprolol, and propranolol. 7. Diabetes: Continue glipizide and glargine. I will order fingersticks and sliding scale lispro. 8. Asthma: Again, I am not concerned about an asthma exacerbation as there is no wheezing on exam and the patient does not appear dyspneic. Continue albuterol and Dulera. 9. Iron deficiency anemia: Again, the patient is not anemic at this point and I do not see any reason to check iron studies during this hospitalization. She does receive outpatient iron infusion. I will note that there was some concern when the ED nurses attempted to access her port which is used for iron infusions and they were unable to draw any blood off the port, so this may need to be further evaluated on an outpatient basis by her button tufting machine operator if this remains an issue. 10. Hyperlipidemia: Continue atorvastatin. 11. Depression and anxiety: Continue citalopram. 12. Fibromyalgia: Continue Percocet. 13. FEN: The patient does not require any fluid resuscitation or electrolyte repletion at this time. I have ordered a heart-healthy diet. 14. Code status: The patient will be a full code. 15. DVT prophylaxis: According to the DVT Risk Assessment, the patient scores a 5, putting her at highest risk. I will continue her on Eliquis. TIME SPENT: Approximately 90 minutes were spent on this admission, greater than half of that time was spent [id number] with the patient and her significant other obtaining my history, performing my physical examination, and reviewing the plan of care. This case has been reviewed with my attending, Dr. Freitas, who is in agreement with the plan of care. TERESITA DAY, TOYA [id number]/[facility] #: [id number] LUZ
[2019-07-24 06:05] LABS: ABS Eosinophils 0.1 10^3/ul (0-0.6); ABS Lymphocytes 3.5 10^3/ul (1.0-4.8); ABS Monocytes 0.6 10^3/ul (0-0.8); ABS Neutrophils 3.8 10^3/ul (1.5-7.7); Eosinophil % 1.5 %; Hematocrit 38 % (35-47); Hemoglobin 12.6 g/dL (12.0-16.0); Lymphocyte % 43.1 %; Mean Corpuscular HGB Conc 33 g/dL (31-36); Mean Corpuscular Hemoglobin 30 pg (27-31); Mean Corpuscular Volume 91 fL (80-97); Mean Platelet Volume 7.8 fL (7.4-10.4); Nucleated Red Blood Cells % 0.2; Platelet Count 305 10^3/uL (150-450); Red Blood Count 4.18 10^6 /uL (3.70-4.87); Red Cell Distribution Width 14 % (10-15); White Blood Count 8.1 10^3/uL (3.5-10.8)
[2019-07-24 06:25] LABS: BUN/Creatinine Ratio 20.8 (8-20); Calcium 8.6 mg/dL (8.6-10.3); EGFR African American 105.5 (>60); EGFR Non-African American 87.2 (>60); Potassium 3.7 mmol/L (3.5-5.0)
[2019-07-24] MEDS: Mometasone/Formoter 200/5 MDI INH SCH ×2 (07:56→19:42)
[2019-07-24] MEDS: Docusate CAP* 100 MG PO SCH ×2 (08:10→20:44)
[2019-07-24] MEDS: Propranolol TAB* 10 MG PO SCH (08:10)
[2019-07-24] MEDS: glipiZIDE TAB* 5 MG PO SCH (08:10)
[2019-07-24] MEDS: Isosorbide Mononitrate ER TAB* 60 MG PO SCH (08:10)
[2019-07-24] MEDS: Diltiazem CD CAP* 240 MG PO SCH (08:10)
[2019-07-24] MEDS: Aspirin 81 mg CHEW TAB* 81 MG TAB.CHEW PO SCH (08:10)
[2019-07-24] MEDS: Metoprolol Tartrate TAB* 25 MG PO SCH ×2 (08:11→20:42)
[2019-07-24] MEDS: Citalopram TAB* 40 MG PO SCH (08:11)
[2019-07-24] MEDS: Hydrochlorothiazide TAB* 25 MG PO SCH (08:11)
[2019-07-24] MEDS: Pantoprazole TAB * 40 MG TAB PO SCH (08:11)
[2019-07-24] MEDS: Insulin LISPRO* 1 UNITS UNIT SUBCUT SCH ×3 (08:16→17:41)
[2019-07-24] MEDS ORDERED: Apixaban* 5 MG TAB PO SCH (09:00)
[2019-07-24 12:58] LABS: Hematocrit 38 % (35-47)
--- NOTE | 2019-07-24 14:51 | PN ---
Subjective Date of Service: 07/24/19 Interval History: Pt continues to c/o LH, nausea, fatigue, weakness. She states she has SOB with walking and laying flat. She is intermittently tearful. She states that she occasionally misses doses of her Eliquis. Also states that she d/c'd this medication during her menses at one point, as she did not want to take it with Midol. She has no other complaints today. Objective Active Medications: Acetaminophen (Tylenol Tab*) 650 mg PO Q4H PRN Al Hydrox/Mg Hydrox/Simethicone (Maalox Plus*) 30 ml PO Q6H PRN Albuterol (Ventolin Hfa Inhaler*) 2 puff INH QID PRN Apixaban (Eliquis*) 5 mg PO BID ARNOLD Aspirin (Aspirin 81 Mg Chew Tab*) 81 mg PO DAILY ARNOLD Atorvastatin Calcium (Lipitor*) 40 mg PO BEDTIME ARNOLD Citalopram Hydrobromide (Celexa Tab*) 40 mg PO DAILY ARNOLD Dextrose (Dextrose 50% Vial 50 Ml*) 25 ml IV PUSH .FOR FS < 60 - SS PRN Diltiazem HCl (Cardizem Cd Cap*) 240 mg PO DAILY ARNOLD Docusate Sodium (Colace Cap*) 100 mg PO BID ARNOLD Fluticasone Propionate (Flonase Nasal Rudy 50mcg*) 2 spray BOTH NARES DAILY PRN Glipizide (Glucotrol Tab*) 5 mg PO DAILY ARNOLD Hydrochlorothiazide (Hydrodiuril Tab*) 12.5 mg PO DAILY [facility] Insulin Glargine (Lantus(*)) 70 units SUBCUT QPM ARNOLD Insulin Human Lispro (Humalog*) 0 units SUBCUT AC ARNOLD; Protocol Isosorbide Mononitrate (Imdur Er Tab*) 60 mg PO DAILY ARNOLD Metoprolol Tartrate (Lopressor Tab*) 37.5 mg PO BID ARNOLD Mometasone Furoate/Formoterol Fumar (Dulera 200/5 Mdi*) 1 puff INH BID ARNOLD Ondansetron HCl (Zofran Tab*) 4 mg PO BID PRN Oxycodone/Acetaminophen (Percocet 5/325 Tab*) 1 tab PO Q6H PRN Pantoprazole Sodium (Protonix Tab*) 40 mg PO QAM ARNOLD Propranolol HCl (Inderal Tab*) 10 mg PO DAILY ARNOLD Zolpidem Tartrate (Ambien Tab*) 5 mg PO BEDTIME PRN Vital Signs: Temp Pulse Resp BP Pulse Ox 98.2 F 87 20 147/87 98 07/24/19 15:15 07/24/19 15:15 07/24/19 15:15 07/24/19 15:15 07/24/19 15:15 Oxygen Devices in Use Now: None Appearance: Pt is laying in bed. She is anxious appearing, intermittently tearful. She is breathing comfortably, in no acute distress. Eyes: No Scleral Icterus, PERRLA Ears/Nose/Mouth/Throat: NL Teeth, Lips, Gums, Clear Oropharnyx, Mucous Membranes Moist Neck: NL Appearance and Movements; NL JVP, Trachea Midline Respiratory: Symmetrical Chest Expansion and Respiratory Effort, Clear to Auscultation Cardiovascular: NL Sounds; No Murmurs; No JVD, RRR, No Edema Abdominal: NL Sounds; No Tenderness; No Distention, No Hepatosplenomegaly Extremities: No Edema, No Clubbing, Cyanosis Neurological: Alert and Oriented x 3 Result Diagrams: 07/24/19 12:49 07/24/19 05:43 Microbiology and Other Data: Microbiology 07/23/19 19:50 Stool Occult Blood (RACHEL) - Final Stool Assess/Plan/Problems-Billing Assessment: 44yof presents with SOB, CP, weakness, fatigue, found to have PE on CTA. - Patient Problems (1) Shortness of breath Comment: -SOB, weakness, fatigue -Echo ordered, pending -Found to have moderately large PE burden on CTA -Hemodynamically stable -Pt takes eliquis for hypercoaguable state, but notes that she misses her evening dose 2-3 times per week, had stopperd her medication 4d during her menses -Discussed with Heme, who recommended d/c eliquis, start lovenox-coumadin bridging -Daily INR (2) Melena Comment: -Pt had colonoscopy WNL, EGD revealing hiatal hernia 07/2018 at [facility] -States she had capsule endoscopy, although no record of report when speaking to [facility] -FOBT positive this admission with stable H/H -Discussed with GI, who recommend outpatient capsule endoscopy (3) CAD (coronary artery disease) Comment: -Trop negative x3; EKG WNL -Continue home asa, atorvastatin, imdur, metoprolol (4) Hypercoagulable state Comment: -D/c eliqukelly, as patient is non-compliant -Start lovenox-coumadin bridging (5) Diabetes mellitus Comment: -Moderately well controlled - Continue Lantus, glipizide, and lispro SS. (6) Hypertension Comment: - Controlled. - Continue metoprolol, diltiazem, and HCTZ (7) Depression with anxiety Comment: -Citalopram -Hydroxyzine for anxiety (8) Iron deficiency anemia Comment: -Pt receives IV iron infusions outpatient (9) HLD (hyperlipidemia) Comment: -Continue statin (10) DVT prophylaxis Comment: -D/c eliquis -Lovenox to Coumadin bridging (11) Full code status Status and Disposition: Observation. Discharge when stable.
[2019-07-24] MEDS ORDERED: Iodixanol* (CONTRAST) 320 MG/ML 100 ML SDV IV ONE (17:16)
[2019-07-24] MEDS: Insulin GLARGINE(*) 1 UNITS UNIT SUBCUT SCH (17:40)
[2019-07-24] MEDS ORDERED: hydrOXYzine HCL TAB* 25 MG PO ONE (18:26)
--- NOTE | 2019-07-24 20:17 | ECHO ---
*[facility]* [place] [address] Fax #: [phone] Transthoracic Echocardiogram Patient: Myranda Menjivar : 1975 Study Date: 07/24/2019 Age: 44 Gender: F HR: 79 bpm Height: 66 in /167.6 cm BSA: 2.29 m^2 Weight: 274.4 lb /124.7 kg BMI: 44.4 kg/m^2 *Alligator Hunter: * Julianne Mccullough [facility] *Referring Physician: * Monika Lisa *Reading Physician: * Lindsay Contreras MD Indications: SOB. History: Coronary artery disease. STEMI in 2015. Pulmonary Embolism. Risk factors: Hypertension. Diabetes mellitus. Obese. Conclusions Summary: - Left ventricle: The cavity size is below normal. Wall thickness is mildly increased. Systolic function is normal. The estimated ejection fraction is 55-60%. - Right ventricle: The cavity size is mildly dilated. - Mitral valve: There is trace regurgitation. - Tricuspid valve: There is trace regurgitation. - C/t 10/14/2015, no overt sig changes. Study data: Transthoracic echocardiogram. Procedure: Transthoracic echocardiography was performed. Image quality was fair. Complete 2D, spectral Doppler, and color flow Doppler. Location: Bedside. Patient status: Inpatient. Patient room number: 434. Rhythm: Normal sinus rhythm. Findings Left ventricle: The cavity size is below normal. Wall thickness is mildly increased. Systolic function is normal. The estimated ejection fraction is 55-60%. Wall motion is normal; there are no regional wall motion abnormalities. Features are consistent with a pseudonormal left ventricular filling pattern, with concomitant abnormal relaxation and increased filling pressure (grade 2 diastolic dysfunction). Right ventricle: The cavity size is mildly dilated. Systolic function is normal. Left atrium: The atrium is at the upper limits of normal in size. Right atrium: The atrium is normal in size. Mitral valve: The leaflets are mildly thickened. There is no evidence of stenosis. There is trace regurgitation. Aortic valve: The leaflets are normal thickness. There is no evidence of stenosis. There is no significant regurgitation. Tricuspid valve: The leaflets are normal thickness. There is no evidence of stenosis. There is trace regurgitation. Pulmonic valve: The leaflets are normal thickness. There is no evidence of stenosis. There is no significant regurgitation. Aorta: Ascending aorta: The ascending aorta is appears normal. Aortic arch: The aortic arch is appears normal. The aortic root appears normal. Pericardium: A prominent pericardial fat pad is present. There is no significant pericardial effusion. Pulmonary arteries: The main pulmonary artery appears dilated. Systemic veins: Inferior vena cava: Not well visualized. Measurements Left ventricle Value Ref Right atrium Value Ref TERA, LAX (L) 3.4 cm 3.8 - 5.2 SI dim, ES 4.9 cm 3.4 - 5.3 ESD, LAX 2.4 cm 2.2 - 3.5 ML dim, ES, A4C 3.8 cm 2.6 - 4.4 FS, LAX 30 % 27 - 45 SI dim, ES, A4C 4.9 cm 3.4 - 5.3 PW, ED, LAX (H) 1.3 cm 0.6 - 0.9 Estimated RAP 8 mm Hg --------- FS 30 % 27 - 45 PW, ED (H) 1.3 cm 0.6 - 0.9 Aortic valve Value Ref PW/ID, ED 0.37 Stacey diam, ED 2.0 cm --------- E', lat stacey, TDI (L) 7.7 cm/sec >=10.0 Peak v, S 1.45 m/sec ---- ----- E/e', lat stacey, 9 VTI, S 26.9 cm ------- -- TDI Mean grad, S 5.0 mm Hg --------- E', med stacey, TDI (L) 5.4 cm/sec >=7.0 Peak grad, S 8.0 mm Hg ---- ----- E/e', med stacey, 13 LVOT/AV, VTI ratio 0.82 ------- -- TDI E', avg, TDI 6.6 cm/sec Mitral valve Value Ref E/e', avg, TDI 10 <=14 Peak E 0.68 m/sec ---- ----- Peak A 0.75 m/sec --------- LVOT Value Ref Decel time 173 ms --------- Peak rosalinda, S 1.04 m/sec Peak E/A ratio 0.9 --------- VTI, S 22.0 cm Mean grad, S 2 mm Hg Pulmonic valve Value Ref Peak v, S 1.04 m/sec --------- Ventricular septum Value Ref Peak grad, S 4.0 mm Hg --------- IVS, ED (H) 1.2 cm 0.6 - 0.9 Aortic root Value Ref Right ventricle Value Ref Root diam 2.9 cm <4.4 TERA, LAX 3.0 cm TERA minor ax, (H) 4.5 cm 1.9 - 3.5 Ascending aorta Value Ref A4C mid AAo AP diam, S 2.8 cm --------- Left atrium Value Ref Aortic arch Value Ref AP dim, ES 3.70 cm 2.70 - Arch diam 2.0 cm --------- 3.80 ML dim, A4C 4.8 cm Decending aorta Value Ref SI dim, A4C 5.5 cm Nelia peak rosalinda 0.97 m/sec --------- Vol/bsa, ES, 1-p 26 ml/m^2 11 - 40 A4C Vol/bsa, ES, A/L 16 ml/m^2 16 - 34 Legend: (L) and (H) liliya values outside specified reference range. Prepared and electronically signed by Lindsay Contreras MD 07/24/2019 20:15
[2019-07-24] MEDS: Atorvastatin* 40 MG TAB PO SCH (20:44)
[2019-07-24] MEDS: Enoxaparin(*) 150 MG/ML 1 ML SYRINGE SUBCUT SCH (20:44)
[2019-07-25] MEDS: Ondansetron TAB* 4 MG PO PRN ×2 (00:30→19:25)
[2019-07-25] MEDS: Mometasone/Formoter 200/5 MDI INH SCH ×2 (07:23→19:47)
[2019-07-25] MEDS: Insulin LISPRO* 1 UNITS UNIT SUBCUT SCH ×3 (08:30→18:30)
[2019-07-25] MEDS: Enoxaparin(*) 150 MG/ML 1 ML SYRINGE SUBCUT SCH ×2 (08:30→21:14)
[2019-07-25] MEDS: glipiZIDE TAB* 5 MG PO SCH (08:31)
[2019-07-25] MEDS: Isosorbide Mononitrate ER TAB* 60 MG PO SCH (08:31)
[2019-07-25] MEDS: Diltiazem CD CAP* 240 MG PO SCH (08:31)
[2019-07-25] MEDS: Hydrochlorothiazide TAB* 25 MG PO SCH (08:32)
[2019-07-25] MEDS: Pantoprazole TAB * 40 MG TAB PO SCH (08:32)
[2019-07-25] MEDS: Propranolol TAB* 10 MG PO SCH (08:33)
[2019-07-25] MEDS: Metoprolol Tartrate TAB* 25 MG PO SCH ×2 (08:33→21:13)
[2019-07-25] MEDS: Aspirin 81 mg CHEW TAB* 81 MG TAB.CHEW PO SCH (08:33)
[2019-07-25] MEDS: Citalopram TAB* 40 MG PO SCH (08:33)
[2019-07-25] MEDS: Docusate CAP* 100 MG PO SCH ×2 (08:38→21:13)
[2019-07-25 10:47] LABS: Hematocrit 38 % (35-47); Hemoglobin 12.9 g/dL (12.0-16.0)
[2019-07-25 10:52] LABS: INR 0.96 (0.82-1.09)
--- NOTE | 2019-07-25 15:30 | PN ---
Subjective Date of Service: 07/25/19 Interval History: Pt states she is tired today. She has some SOB with activities, such as eating , and notes that she has note been up walking regularly. She has R chest wall pain with elevation of arms. She c/o headache. She has no other complaints this afternoon. Pt later complained of squeezing chest pain. She notes that she has midsternal chest wall tenderness, but notes that she also has this pain that feels deeper. She is tearful while talking, is concerned about having another WA. She is anxious and notes that they did not catch her previous WA in 2015. She is tearful, talking about her home life- her son was murdered 2 years ago, another son in senior living, she is trying to adopt a young child, for whom she is the primary caregiver. Objective Active Medications: Acetaminophen (Tylenol Tab*) 650 mg PO Q4H PRN PRN Reason: MILD PAIN or TEMP > 100.4 Al Hydrox/Mg Hydrox/Simethicone (Maalox Plus*) 30 ml PO Q6H PRN PRN Reason: INDIGESTION Albuterol (Ventolin Hfa Inhaler*) 2 puff INH QID PRN PRN Reason: SHORTNESS OF BREATH Aspirin (Aspirin 81 Mg Chew Tab*) 81 mg PO DAILY [facility] Last Admin: 07/25/19 08:33 Dose: 81 mg Atorvastatin Calcium (Lipitor*) 40 mg PO BEDTIME [facility] Last Admin: 07/24/19 20:44 Dose: 40 mg Citalopram Hydrobromide (Celexa Tab*) 40 mg PO DAILY [facility] Last Admin: 07/25/19 08:33 Dose: 40 mg Dextrose (Dextrose 50% Vial 50 Ml*) 25 ml IV PUSH .FOR FS < 60 - SS PRN PRN Reason: FS < 60 Diltiazem HCl (Cardizem Cd Cap*) 240 mg PO DAILY [facility] Last Admin: 07/25/19 08:31 Dose: 240 mg Docusate Sodium (Colace Cap*) 100 mg PO BID [facility] Last Admin: 07/25/19 08:38 Dose: Not Given Enoxaparin Sodium (Lovenox(*)) 125 mg SUBCUT Q12H [facility] Last Admin: 07/25/19 08:30 Dose: 125 mg Fluticasone Propionate (Flonase Nasal Meridian 50mcg*) 2 spray BOTH NARES DAILY PRN PRN Reason: CONGESTION Glipizide (Glucotrol Tab*) 5 mg PO DAILY [facility] Last Admin: 07/25/19 08:31 Dose: 5 mg Hydrochlorothiazide (Hydrodiuril Tab*) 12.5 mg PO DAILY [facility] Last Admin: 07/25/19 08:32 Dose: 12.5 mg Insulin Glargine (Lantus(*)) 70 units SUBCUT QPM [facility] Last Admin: 07/24/19 17:40 Dose: 70 units Insulin Human Lispro (Humalog*) 0 units SUBCUT AC [facility]; Protocol Last Admin: 07/25/19 13:25 Dose: 1 units Isosorbide Mononitrate (Imdur Er Tab*) 60 mg PO DAILY [facility] Last Admin: 07/25/19 08:31 Dose: 60 mg Metoprolol Tartrate (Lopressor Tab*) 37.5 mg PO BID [facility] Last Admin: 07/25/19 08:33 Dose: 37.5 mg Mometasone Furoate/Formoterol Fumar (Dulera 200/5 Mdi*) 1 puff INH BID [facility] Last Admin: 07/25/19 07:23 Dose: 1 puff Ondansetron HCl (Zofran Tab*) 4 mg PO BID PRN PRN Reason: NAUSEA Last Admin: 07/25/19 00:30 Dose: 4 mg Oxycodone/Acetaminophen (Percocet 5/325 Tab*) 1 tab PO Q6H PRN PRN Reason: PAIN - SEVERE Last Admin: 07/24/19 17:40 Dose: 1 tab Pantoprazole Sodium (Protonix Tab*) 40 mg PO QAM [facility] Last Admin: 07/25/19 08:32 Dose: 40 mg Propranolol HCl (Inderal Tab*) 10 mg PO DAILY [facility] Last Admin: 07/25/19 08:33 Dose: 10 mg Warfarin Sodium (Coumadin Tab(*)) 7.5 mg PO DAILY@1700 [facility]; Protocol Zolpidem Tartrate (Ambien Tab*) 5 mg PO BEDTIME PRN PRN Reason: SLEEP Last Admin: 07/24/19 20:44 Dose: 5 mg Vital Signs: Temp Pulse Resp BP Pulse Ox 98.2 F 86 16 108/58 99 07/25/19 15:16 07/25/19 15:16 07/25/19 15:16 07/25/19 15:16 07/25/19 15:16 Oxygen Devices in Use Now: None Appearance: Pt is intermittently tearful, breathing comfortably, in no acute distress. She is anxious-appearing and fidgeting with hands/tapping during conversation. Eyes: No Scleral Icterus, PERRLA Ears/Nose/Mouth/Throat: NL Teeth, Lips, Gums, Clear Oropharnyx, Mucous Membranes Moist Neck: NL Appearance and Movements; NL JVP, Trachea Midline Respiratory: Symmetrical Chest Expansion and Respiratory Effort, Clear to Auscultation, - - Midsternal chest wall TTP Cardiovascular: NL Sounds; No Murmurs; No JVD, RRR, No Edema Abdominal: NL Sounds; No Tenderness; No Distention, No Hepatosplenomegaly Extremities: No Edema, No Clubbing, Cyanosis Neurological: Alert and Oriented x 3 Result Diagrams: 07/25/19 10:21 07/24/19 05:43 Microbiology and Other Data: Microbiology 07/23/19 19:50 Stool Occult Blood (RACHEL) - Final Stool Assess/Plan/Problems-Billing Assessment: 44yof presents with SOB, CP, weakness, fatigue, found to have PE on CTA. - Patient Problems (1) Chest pain Comment: -CP today, described as squeezing -EKG WNL; repeat in a.m. -Trend troponins x3 (2) Shortness of breath Comment: -SOB, weakness, fatigue -Echo EF 55-60% -Found to have moderately large acute PE burden on CTA -Hemodynamically stable -Pt takes eliquis for hypercoaguable state, but notes that she misses her evening dose 2-3 times per week, had stopperd her medication 4d during her menses in past -Discussed with Heme, who recommended d/c eliquis, start lovenox-coumadin bridging -Daily INR (3) Melena Comment: -Pt had colonoscopy WNL, EGD revealing hiatal hernia 07/2018 at [facility] -States she had capsule endoscopy, although no record of report when speaking to [facility] -FOBT positive this admission with stable H/H -Discussed with GI, who recommend outpatient capsule endoscopy (4) CAD (coronary artery disease) Comment: -Trop negative x3; EKG WNL -Continue home asa, atorvastatin, imdur, metoprolol (5) Hypercoagulable state Comment: -D/c eliquis, as patient is non-compliant -Start lovenox-coumadin bridging (6) Diabetes mellitus Comment: -Moderately well controlled - Continue Lantus, glipizide, and lispro SS. (7) Hypertension Comment: - Controlled. - Continue metoprolol, diltiazem, and HCTZ (8) Depression with anxiety Comment: -Citalopram -Hydroxyzine for anxiety (9) Iron deficiency anemia Comment: -Pt receives IV iron infusions outpatient (10) HLD (hyperlipidemia) Comment: -Continue statin (11) DVT prophylaxis Comment: -D/c eliquis -Lovenox to Coumadin bridging (12) Full code status Status and Disposition: Observation. Discharge when stable.
[2019-07-25] MEDS ORDERED: Warfarin TAB(*) 7.5 MG PO SCH (17:00)
[2019-07-25] MEDS: hydrOXYzine HCL TAB* 25 MG PO PRN (18:29)
[2019-07-25] MEDS: Insulin GLARGINE(*) 1 UNITS UNIT SUBCUT SCH (18:30)
[2019-07-25] MEDS: Atorvastatin* 40 MG TAB PO SCH (21:13)
[2019-07-26] MEDS: Zolpidem TAB* 5 MG PO PRN (01:45)
[2019-07-26] MEDS: Ondansetron TAB* 4 MG PO PRN ×2 (01:46→11:06)
[2019-07-26] MEDS: oxyCODONE/Acetamin 5/325 MG* TAB PO PRN ×2 (01:46→11:06)
[2019-07-26 07:48] LABS: INR 0.96 (0.82-1.09)
[2019-07-26] MEDS: Insulin LISPRO* 1 UNITS UNIT SUBCUT SCH ×2 (08:26→12:47)
[2019-07-26] MEDS: Mometasone/Formoter 200/5 MDI INH SCH (09:33)
[2019-07-26] MEDS: Metoprolol Tartrate TAB* 25 MG PO SCH (10:51)
[2019-07-26] MEDS: Diltiazem CD CAP* 240 MG PO SCH (10:52)
[2019-07-26] MEDS: Citalopram TAB* 40 MG PO SCH (10:53)
[2019-07-26] MEDS: Isosorbide Mononitrate ER TAB* 60 MG PO SCH (10:53)
[2019-07-26] MEDS: Propranolol TAB* 10 MG PO SCH (10:53)
[2019-07-26] MEDS: glipiZIDE TAB* 5 MG PO SCH (10:53)
[2019-07-26] MEDS: Aspirin 81 mg CHEW TAB* 81 MG TAB.CHEW PO SCH (10:54)
[2019-07-26] MEDS: Pantoprazole TAB * 40 MG TAB PO SCH (10:54)
[2019-07-26] MEDS: Hydrochlorothiazide TAB* 25 MG PO SCH (10:54)
[2019-07-26] MEDS: Docusate CAP* 100 MG PO SCH (10:55)
[2019-07-26] MEDS: Enoxaparin(*) 150 MG/ML 1 ML SYRINGE SUBCUT SCH (10:55)
[2019-07-26] MEDS: hydrOXYzine HCL TAB* 25 MG PO PRN (10:57)
[2019-07-26 16:27] VITALS: BP 115/67
--- NOTE | 2019-07-26 18:53 | DS ---
CONTINUATION ADDENDUM NOW INCLUDED ON THIS REPORT CC: Dr. Roberto; Dr. Ball; Dr. Jesus; Dr. Joseph * DISCHARGE SUMMARY: DATE OF ADMISSION: 07/23/19 DATE OF DISCHARGE: 07/26/19 PRIMARY CARE PROVIDER: Dr. Roberto. OIL PIPELINE OPERATOR: Dr. Ball. HEMATOLOGY: Dr. Jesus. ATTENDING PHYSICIAN: Dr. Jsoeph * (dictated by DYLAN Stevenson). PRIMARY DIAGNOSES: 1. Pulmonary embolism. 2. Melena. SECONDARY DIAGNOSES: 1. Coronary artery disease, ST-elevation myocardial infarction 2014. 2. Hypercoagulable state, pulmonary embolism 2014. 3. Diabetes mellitus type 2. 3. Iron deficiency anemia. 4. Asthma. 5. Chronic pain. 6. Fibromyalgia. 7. Depression. 8. Anxiety. 9. Posttraumatic stress disorder. 10. Hyperlipidemia. 11. Morbid obesity. 12. Mood disorder. 13. Hiatal hernia. CONTINUATION ADDENDUM: STUDIES WHILE IN THE HOSPITAL: Transthoracic echocardiogram: Cavity size below normal, wall thickness mildly increased, systolic function normal, EF 55% to 60% . Right ventricle cavity size mildly dilated. Mitral valve, trace regurgitation. Trace tricuspid regurgitation. No overt significant changes from 10/14/15. CTA of the chest, impression: Moderately large burden of acute pulmonary emboli. DISCHARGE MEDICATIONS: Home medications: 1. Albuterol HFA inhaler 2 puffs inhalation 4 times a day p.r.n. shortness of breath, wheeze. 2. Aspirin 81 mg p.o. daily. 3. Atorvastatin 40 mg p.o. at bedtime. 4. Citalopram 40 mg p.o. daily. 5. Diltiazem 240 mg p.o. daily. 6. Docusate 100 mg p.o. b.i.d. 7. Fluticasone nasal spray, 2 sprays to both nares daily p.r.n. 8. Glipizide 5 mg p.o. daily. 9. Hydrochlorothiazide 12.5 mg p.o. daily. 10. Hydrocortisone cream 1 application topically b.i.d. p.r.n. itching. 11. Insulin glargine 87 units subcu q.p.m. 12. Insulin lispro 0 to 8 units subcu a.c. based on sliding scale. 13. Imdur ER 60 mg p.o. daily. 14. Xyzal 5 mg p.o. daily p.r.n. allergy symptoms. 15. Metoprolol tartrate 37.5 mg p.o. b.i.d. 16. Dulera 200/5 one puff inhalation b.i.d. 17. Nitroglycerin tab 0.4 mg sublingual q.5 minutes p.r.n. chest pain. 18. Omeprazole 40 mg p.o. daily. 19. Ondansetron 4 mg p.o. b.i.d. p.r.n. 20. Percocet 7.5/325 one tab p.o. q.6 hours p.r.n. pain. 21. Propranolol 10 mg p.o. daily. 22. Zolpidem 5 to 10 mg p.o. at bedtime p.r.n. New home medications: 1. Enoxaparin 125 mg subcu q.12 hours until INR greater than 2.0 x48 hours. 2. Hydroxyzine 25 mg p.o. daily p.r.n. anxiety prescribed 4. 3. Warfarin 7.5 mg p.o. daily until INR greater than 2.0, then titration per primary care provider or [facility]. Discontinued home medications: 1. Eliquis. HISTORY OF PRESENT ILLNESS/HOSPITAL COURSE: Ms. Menjivar is a 44-year-old female with past medical history of hypercoagulable state with history of STEMI and PE, diabetes, iron deficiency anemia, who presented to the ER on with complaints of malaise and generalized symptoms. For full and complete details, please see the history and physical dictated by Monika Lisa NP, but in short, the patient presented with these symptoms and zapping chest pain. She was admitted to the hospital. She complains of shortness of breath that was worse with lying flat and exertion. Transthoracic echocardiogram was obtained and revealed an ejection fraction of 60% to 65%. D-dimer was very mildly elevated. CTA was performed and the patient was noted to have pulmonary embolism. She does have history of hypercoagulable state, but she is on Eliquis. She notes that she has difficulty with compliance with this medication. She states that she will miss her evening dose 2 to 3 times per week and that she also skipped all doses for 4 days during her menses. The patient follows with Dr. Jesus, I discussed the case with her and she recommended Lovenox to Coumadin bridging. The patient is agreeable to this and feels that she will have easier compliance with once daily medication that she can take in the morning with all of her other home medications as she never misses her morning dose. The patient reports recent tarry stools. Stool for occult blood was positive. She had a workup at [facility] approximately 1 year ago that is where she had an EGD and colonoscopy as well as capsule endoscopy. EGD and colonoscopy reports were obtained and revealed hiatal hernia, unable to obtain capsule endoscopy report, although the patient states she did have this. Throughout her stay, her H and H was monitored daily and was stable. She had no overt bleeding. She is on a PPI daily. She will continue this medication and follow up with GI outpatient. The patient had chest pain at the beginning of her hospital stay. Troponins were negative x3 and EKG was within normal limits. Approximately 2 days later, the patient reported chest pain again. She had pleuritic chest pain, but also felt that she had chest pain that was deeper. Again EKG and troponins were trended. Troponins were negative x3. EKG was within normal limits. I had a long discussion with the patient and she notes that she has a lot of anxiety and feels that this may contribute. She was given hydroxyzine during her stay, which she states helped with her anxiety. She states that her home situation is stressful. She had a son who was murdered 2 years ago and a son who is currently in long-term. 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 We discussed that ACS was ruled out, but that the patient should return if she develops any further chest pain. At the time of discharge, the patient denies chest pain. She notes that she has some shortness of breath with ambulation. She denies headache, vision changes, dizziness, lightheadedness. She denies abdominal pain, nausea, vomiting, diarrhea, or constipation. She denies calf pain or tenderness. She denies myalgias or arthralgias. Ms. Menjivar is stable for discharge. This case was discussed with the patient's primary care provider, Dr. Roberto, who will manage the patient's Lovenox to Coumadin bridging. She will be given an order for INR blood work that will be done on Sunday or Sunday. She will also call Dr. Roberto and get an appointment as soon as possible so that her dosing can be adjusted as needed. The patient understands and repeats back instructions for Lovenox injection and p.o. Coumadin as well as INR blood work. Again, her primary care provider has been made aware of this. PHYSICAL EXAMINATION: Vital Signs: Temperature 97.5, oral heart rate 82, respiratory rate 18, oxygen saturation 99% on room air, blood pressure 115/67. General: Ms. Menjivar is a well-developed, well-nourished, obese, middle aged, black woman, who is sitting at the edge of her bed. She is somewhat fidgety and anxious appearing and intermittently tearful, but overall pleasant and cooperative. HEENT: PERRL, EOMI, nonicteric sclerae. Hearing is grossly intact. Oral mucous membranes are moist. There are no lesions. Pharynx is clear. The palate elevates symmetrically. Tongue is at midline. Cardiovascular : Regular rate and rhythm with S1, S2 present. There are no murmurs, rubs, clicks, or gallops. There is no JVD. There is no peripheral edema. The patient has tenderness to palpation midsternal chest wall. Pulmonary: Symmetrical chest expansion without use of accessory muscles. Lungs are clear to auscultation bilaterally without rhonchi, wheezes, or rubs. There is no digital clubbing or cyanosis. Abdomen: Obese, bowel sounds in all quadrants. The abdomen is soft. There is no tenderness to palpation. No noted hepatosplenomegaly. Musculoskeletal: Full range of motion without pain or deformities. Neuro: The patient is awake. She is alert and oriented x3 with cranial nerves grossly intact. She has 5/5 muscle strength bilaterally in upper and lower extremities. Ms. Menjivar is stable for discharge to home. CONDITION: Good. ACTIVITY: As tolerated. DIET: 1. Heart healthy. 2. ADA. MEDICATIONS: 1. Discontinue Eliquis. 2. Continue Lovenox 125 mg subcu b.i.d. 3. Continue Coumadin 7.5 mg p.o. daily. 4. Hydroxyzine p.r.n. anxiety prescribed 4. EDUCATION: 1. Repeat INR blood work on Sunday or Sunday and follow up with Dr. Roberto with 24 hours of getting blood work. 2. Follow up with primary care provider PARRIS, call Sunday morning. He will be in charge of Coumadin dosing after discharge, also discuss anxiety management. 3. Follow up with Gastroenterology or Dr. Francis for further evaluation of melena. 4. Follow up with Mental Health as needed for anxiety. 5. Return to the ER or nearest hospital if you experience any worsening symptoms chest pain or discomfort shortness of breath, dizziness, lightheadedness, loss of consciousness, high fevers, chills, night sweats, or any other worrisome signs or symptoms. This is a summarized report of a complex medical history and hospital stay. For further details, please see the entire medical record. TIME SPENT: Approximately 40 minutes were spent on this discharge, greater than half that time was spent [id number] with the patient discussing discharge plans and instructions. DYLAN LANIER [id number]/CPS #: [id number]/CPS #: [id number] LUZ
--- NOTE | 2019-07-26 21:22 | DS ---
DISCHARGE SUMMARY: DATE OF ADMISSION: DATE OF DISCHARGE: ADDENDUM: STUDIES WHILE IN THE HOSPITAL: Transthoracic echocardiogram: Cavity size below normal, wall thickness mildly increased, systolic function normal, EF 55% to 60% . Right ventricle cavity size mildly dilated. Mitral valve, trace regurgitation. Trace tricuspid regurgitation. No overt significant changes from 10/14/15. CTA of the chest, impression: Moderately large burden of acute pulmonary emboli. DISCHARGE MEDICATIONS: Home medications: 1. Albuterol HFA inhaler 2 puffs inhalation 4 times a day p.r.n. shortness of breath, wheeze. 2. Aspirin 81 mg p.o. daily. 3. Atorvastatin 40 mg p.o. at bedtime. 4. Citalopram 40 mg p.o. daily. 5. Diltiazem 240 mg p.o. daily. 6. Docusate 100 mg p.o. b.i.d. 7. Fluticasone nasal spray, 2 sprays to both nares daily p.r.n. 8. Glipizide 5 mg p.o. daily. 9. Hydrochlorothiazide 12.5 mg p.o. daily. 10. Hydrocortisone cream 1 application topically b.i.d. p.r.n. itching. 11. Insulin glargine 87 units subcu q.p.m. 12. Insulin lispro 0 to 8 units subcu a.c. based on sliding scale. 13. Imdur ER 60 mg p.o. daily. 14. Xyzal 5 mg p.o. daily p.r.n. allergy symptoms. 15. Metoprolol tartrate 37.5 mg p.o. b.i.d. 16. Dulera 200/5 one puff inhalation b.i.d. 17. Nitroglycerin tab 0.4 mg sublingual q.5 minutes p.r.n. chest pain. 18. Omeprazole 40 mg p.o. daily. 19. Ondansetron 4 mg p.o. b.i.d. p.r.n. 20. Percocet 7.5/325 one tab p.o. q.6 hours p.r.n. pain. 21. Propranolol 10 mg p.o. daily. 22. Zolpidem 5 to 10 mg p.o. at bedtime p.r.n. New home medications: 1. Enoxaparin 125 mg subcu q.12 hours until INR greater than 2.0 x48 hours. 2. Hydroxyzine 25 mg p.o. daily p.r.n. anxiety prescribed 4. 3. Warfarin 7.5 mg p.o. daily until INR greater than 2.0, then titration per primary care provider or Coumadin Clinic. Discontinued home medications: Eliquis. HISTORY OF PRESENT ILLNESS/HOSPITAL COURSE: Ms. Menjivar is a 44-year-old female with past medical history of hypercoagulable state with history of STEMI and PE, diabetes, iron deficiency anemia, who presented to the ER on with complaints of malaise and generalized symptoms. For full and complete details, please see the history and physical dictated by Monika Lisa NP, but in short, the patient presented with these symptoms and zapping chest pain. She was admitted to the hospital. She complains of shortness of breath that was worse with lying flat and exertion. Transthoracic echocardiogram was obtained and revealed an ejection fraction of 60% to 65%. D-dimer was very mildly elevated. CTA was performed and the patient was noted to have pulmonary embolism. She does have history of hypercoagulable state, but she is on Eliquis. She notes that she has difficulty with compliance with this medication. She states that she will miss her evening dose 2 to 3 times per week and that she also skipped all doses for 4 days during her menses. The patient follows with Dr. Jesus, I discussed the case with her and she recommended Lovenox to Coumadin bridging. The patient is agreeable to this and feels that she will have easier compliance with once daily medication that she can take in the morning with all of her other home medications as she does not miss her morning dose. The patient reports recent tarry stools. Stool for occult blood was positive. She had a workup at [place] approximately 1 year ago that is where she had an EGD and colonoscopy as well as capsule endoscopy. EGD and colonoscopy reports were obtained and revealed hiatal hernia, unable to obtain capsule endoscopy report, although the patient states she did have this. Throughout her stay, her H and H was monitored daily and was stable. She had no overt bleeding. She is on a PPI daily. She will continue this medication and follow up with GI outpatient. The patient had chest pain at the beginning of her hospital stay. Troponins were negative x3 and EKG was within normal limits. Approximately 2 days later, the patient reported chest pain again. She had pleuritic chest pain, but also felt that she had chest pain that was deeper. Again EKG and troponins were trended. Troponins were negative x3. EKG was within normal limits. I had a long discussion with the patient and she notes that she has a lot of anxiety and feels that this may contribute. She was given hydroxyzine during her stay, which she states helped with her anxiety. She states that her home situation is stressful. She had a son who was murdered 2 years ago and a son who is currently in half-way. 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 We discussed that ACS was ruled out, but that the patient should return if she develops any further chest pain. At the time of discharge, the patient denies chest pain. She notes that she has some shortness of breath with ambulation. She denies headache, vision changes, dizziness, lightheadedness. She denies abdominal pain, nausea, vomiting, diarrhea, or constipation. She denies calf pain or tenderness. She denies myalgias or arthralgias. Ms. Menjivar is stable for discharge. This case was discussed with the patient's primary care provider, Dr. Roberto, who will manage the patient's Lovenox to Coumadin bridging. She will be given an order for INR blood work that will be done on Sunday or Sunday. She will also call Dr. Roberto and get an appointment as soon as possible so that her dosing can be adjusted as needed. The patient understands and repeats back instructions for Lovenox injection and p.o. Coumadin as well as INR blood work. Again, her primary care provider has been made aware of this. PHYSICAL EXAMINATION: Vital Signs: Temperature 97.5, oral heart rate 82, respiratory rate 18, oxygen saturation 99% on room air, blood pressure 115/67. General: Ms. Menjivar is a well-developed, well-nourished, obese, middle aged, black woman, who is sitting at the edge of her bed. She is somewhat fidgety and anxious appearing and intermittently tearful, but overall pleasant and cooperative. HEENT: PERRL, EOMI, nonicteric sclerae. Hearing is grossly intact. Oral mucous membranes are moist. There are no lesions. Pharynx is clear. The palate elevates symmetrically. Tongue is at midline. Cardiovascular: Regular rate and rhythm with S1, S2 present. There are no murmurs, rubs, clicks, or gallops. There is no JVD. There is no peripheral edema. The patient has tenderness to palpation midsternal chest wall. Pulmonary: Symmetrical chest expansion without use of accessory muscles. Lungs are clear to auscultation bilaterally without rhonchi, wheezes, or rubs. There is no digital clubbing or cyanosis. Abdomen: Obese, bowel sounds in all quadrants. The abdomen is soft. There is no tenderness to palpation. No noted hepatosplenomegaly. Musculoskeletal: Full range of motion without pain or deformities. Neuro: The patient is awake. She is alert and oriented x3 with cranial nerves grossly intact. She has 5/5 muscle strength bilaterally in upper and lower extremities. Ms. Menjivar is stable for discharge to home. CONDITION: Good. ACTIVITY: As tolerated. DIET: 1. Heart healthy. 2. ADA. MEDICATIONS: 1. Discontinue Eliquis. 2. Continue Lovenox 125 mg subcu b.i.d. 3. Continue Coumadin 7.5 mg p.o. daily. 4. Hydroxyzine p.r.n. anxiety prescribed 4. EDUCATION: 1. Repeat INR blood work on Sunday or Sunday and follow up with Dr. Roberto with 24 hours of getting blood work. 2. Follow up with primary care provider PARRIS, call Sunday. He will be in charge of Coumadin dosing after discharge, also discuss anxiety management. 3. Follow up with Gastroenterology or Dr. Francis for further evaluation of melena. 4. Follow up with Mental Health as needed for anxiety. 5. Return to the ER or nearest hospital if you experience any worsening symptoms chest pain or discomfort shortness of breath, dizziness, lightheadedness, loss of consciousness, high fevers, chills, night sweats, or any other worrisome signs or symptoms. This is a summarized report of a complex medical history and hospital stay. For further details, please see the entire medical record. TIME SPENT: Approximately 40 minutes were spent on this discharge, greater than half that time was spent [id number] with the patient discussing discharge plans and instructions. DYLAN LANIER [id number]/[facility] #: [id number]
== END 2019-07-26 16:54 | disposition home or self-care (01) | DRG 134 ==
LOC: ED 15:35 → MEDTELE 21:40 → OBSVTOIN 07-25 11:00
PROVIDERS: ADMIT Hospitalist; ATTEND Internal Medicine
DX: I26.99 Other pulmonary embolism without acute cor pulmonale (principal); K92.1 Melena; D68.59 Other primary thrombophilia; Z68.41 Body mass index [BMI] 40.0-44.9, adult; I25.10 Atherosclerotic heart disease of native coronary artery without angina pectoris; E11.9 Type 2 diabetes mellitus without complications; D50.9 Iron deficiency anemia, unspecified; J45.909 Unspecified asthma, uncomplicated; G89.29 Other chronic pain; M79.7 Fibromyalgia; E78.00 Pure hypercholesterolemia, unspecified; K21.9 Gastro-esophageal reflux disease without esophagitis; F32.9 Major depressive disorder, single episode, unspecified; F41.9 Anxiety disorder, unspecified; F43.10 Post-traumatic stress disorder, unspecified; E78.5 Hyperlipidemia, unspecified; E66.01 Morbid (severe) obesity due to excess calories; K44.9 Diaphragmatic hernia without obstruction or gangrene; I08.1 Rheumatic disorders of both mitral and tricuspid valves; Z79.82 Long term (current) use of aspirin; Z79.4 Long term (current) use of insulin; Z79.01 Long term (current) use of anticoagulants; I25.2 Old myocardial infarction; Z86.711 Personal history of pulmonary embolism; Z91.14 Patient's other noncompliance with medication regimen
CPT/HCPCS: 36415; 71045; 71275; 80048; 80053; 82272; 83036; 83605; 83735; 83880; 84484; 85014; 85018; 85025; 85379; 85610; 85730; 93005; 93306; 94640; 96372; 99284; A9270-GY; G0378; J1650